=== PATIENT | female | born 1950 | race Caucasian/White ===

== ENCOUNTER → 2019-11-11 11:14 | Outpatient (CLI) | payer MEDICARE, SELFPAY ==
--- NOTE | ~2019-11-11 | DEXA_ITS ---
Bone Density Report Name: Idalmis Moeller Age: 69 Sex: Female Ethnicity: White Date of : 1950 Indication: osteopenia; height loss; history of glucocorticoids; postmenopausal Referring Provider: KRISTAL, HERRERA Cheng Study: Bone densitometry was performed. Exam Date: November 11, 2019 Accession number: [id number] Bone Density: Region BMD T-score Z-score Classification AP Spine (L1-L4) 0.902 -1.3 0.6 Osteopenia Femoral Neck (Left) 0.656 -1.7 -0.1 Osteopenia Total Hip (Left) 0.746 -1.6 -0.2 Osteopenia Femoral Neck (Right) 0.724 -1.1 0.5 Osteopenia Total Hip (Right) 0.732 -1.7 -0.4 Osteopenia Total Hip Mean 0.739 -1.7 -0.3 Osteopenia World Health Organization criteria for BMD impression classify patients as: Normal (T-score at or above -1.0), Osteopenia (T-score between -1.0 and -2.5), or Osteoporosis (T-score at or below -2.5). 10-year Fracture Risk(1): Major Osteoporotic Fracture 16% Hip Fracture 2.6% Reported Risk Factors: [place] (), Neck BMD=0.656, BMI=25.4, glucocorticoids (1) FRAX(R) Version 3.08. Fracture probability calculated for an untreated patient. Fracture probability may be lower if the patient has received treatment. Previous Exams: Region Exam Age BMD T-score BMD Change BMD Change Date g/cm2 vs Baseline vs Previous AP Spine(L1-L4) 11/11/2019 69 0.902 -1.3 -0.059* -0.129* 07/23/2009 59 1.031 -0.1 0.071* 0.071* 11/01/2006 56 0.960 -0.8 Total Hip(Left) 11/11/2019 69 0.746 -1.6 -0.042* -0.096* 07/23/2009 59 0.842 -0.8 0.054* 0.054* 11/01/2006 56 0.788 -1.3 Total Hip(Right) 11/11/2019 69 0.732 -1.7 -0.018 -0.054* 07/23/2009 59 0.786 -1.3 0.036* 0.036* 11/01/2006 56 0.750 -1.6 *Denotes significance at 95% confidence level, LSC for AP Spine = 0.022 g/cm2, LSC for Total Hip = 0.027 g/cm2 Clinical Information Provided by Patient: Has taken Glucocorticoids Has used the following medications: HRT (i.e. estrogen/hormone therapy), Vitamin D Patient maximum height was 67.5 Menopause Age: 52 No regular weight bearing exercise Drinks caffeinated beverages Onset of menses at age 15 Number of children 4 Impression: The patient has low bone mass, based on the Right Total Hip T-score. The patient has an estimated ten-year risk of hip fracture of 2.6% and an estimated ten-year risk of ma
== END ==
PROVIDERS: Visit Provider Family Medicine
DX: Z78.0 Asymptomatic menopausal state (principal); M85.88 Other specified disorders of bone density and structure, other site; M85.852 Other specified disorders of bone density and structure, left thigh; M85.851 Other specified disorders of bone density and structure, right thigh
CPT/HCPCS: 77080

== ENCOUNTER → 2020-12-03 02:01 | Outpatient (CLI) | payer MEDICARE, SELFPAY ==
[2020-12-04 19:47] LABS: SARS-CoV-2 RNA PCR Negative
== END ==
PROVIDERS: Internal Medicine Gastroenterology; PCP Family Medicine; Visit Provider Internal Medicine Gastroenterology
DX: Z01.812 Encounter for preprocedural laboratory examination (principal); Z20.822 Contact with and (suspected) exposure to COVID-19
CPT/HCPCS: C9803; U0003; U0005

== ENCOUNTER 2020-12-06 00:56 | Day surgery (SDC) | payer MEDICARE, SELFPAY ==
[2020-11-01 08:40] VITALS: BMI 23.8
[2020-12-06 07:51] VITALS: BP 131/77; PULSE 103; RESP 16; TEMP 36.6; O2SAT 98; BMI 24.3
[2020-12-06] MEDS: LACTATED RINGERS 1,000 ML 150 ML IV CONT (08:03)
--- NOTE | 2020-12-06 08:39 | PM.HPGS ---
History of Present Illness History of Present Illness Consent: Risks, benefits, and alternatives have been discussed and questions answered. Patient agrees to proceed with procedure. Chief complaint: Hx of Polyps Narrative: Idalmis Moeller is a 70 year old female undergoing screening colonoscopy. She has history of having a polyp removed about 12 years ago [facility] Family History Family History Mother Family history of malignant neoplasm of urinary bladder Father Cerebrovascular accident Malignant neoplasm of prostate Other Family history of dementia Hypertension Social History Social History Smoking status: Never smoker Alcohol intake: unknown Gender identity (if verbalized by the patient): Female Meds Home Medications and Allergies Home Medications Medication Instructions Recorded Confirmed Type aspirin 81 mg PO DAILY 11/01/20 12/06/20 History calcium carbonate-vitamin D3 1 tablet PO DAILY 11/01/20 12/06/20 History [Calcium + D] estradiol [Yuvafem] 10 mcg VAGINAL DAILY 11/01/20 12/06/20 History magnesium 250 mg PO DAILY 11/01/20 12/06/20 History bcmnavvgvcjb-lgm-jpze-FA-vit K 400 tablet PO DAILY 11/01/20 12/06/20 History [Adults Multivitamin] trazodone 25 mg PO HS 11/01/20 12/06/20 History pantoprazole 40 mg PO DAILY 11/24/20 12/06/20 History Allergies Allergy/AdvReac Type Severity Reaction Status Date / Time Penicillins Allergy Unknown Unknown Verified 12/06/20 07:48 Vital Signs Vital Signs - 24 hr 12/06/20 07:51 Temperature 36.6 C Pulse Rate 103 H Respiratory Rate 16 Blood Pressure 131/77 Pulse Oximetry 98 Exam Resp: Auscultation: clear to auscultation bilaterally Cardio: Rate: regular rate Rhythm: regular rhythm GI: GI Palp: Yes Soft to palpation and No Tenderness to palpation present (GI) Assessment and Plan Assessment and plan (1) Colon cancer screening: Code(s): Z12.11 - Encounter for screening for malignant neoplasm of colon Status: Acute Assessment and Plan: Colonoscopy with possible biopsy or polypectomy or cautery or injection of substances.
--- NOTE | 2020-12-06 08:48 | WPDANESEPPF ---
Anes - Initial Pre Proc Eval Procedure: Operation Date: 12/06/20 09:00 Proposed Procedures p Screening Colonoscopy - Singh Luna MD Date/Time: 12/06/20 08:48 Surgeon: Singh Luna MD Pre Op Diagnosis: Hx of Polyps Patient Data Age: 70 Gender: F Height: 5 ft 8 in Weight: 72.7 kg Last Vital Signs Temp 97.9 F 12/06/20 07:51 Pulse 103 H 12/06/20 07:51 Resp 16 12/06/20 07:51 BP 131/77 12/06/20 07:51 Pulse Ox 98 12/06/20 07:51 Allergies Allergy/AdvReac Type Severity Reaction Status Date / Time Penicillins Allergy Unknown Unknown Verified 12/06/20 07:48 Home Medications Medication Instructions Recorded Confirmed Type aspirin 81 mg PO DAILY 11/01/20 12/06/20 History calcium carbonate-vitamin D3 1 tablet PO DAILY 11/01/20 12/06/20 History [Calcium + D] estradiol [Yuvafem] 10 mcg VAGINAL DAILY 11/01/20 12/06/20 History magnesium 250 mg PO DAILY 11/01/20 12/06/20 History voqrkozymxpb-ebf-qeah-FA-vit K 400 tablet PO DAILY 11/01/20 12/06/20 History [Adults Multivitamin] trazodone 25 mg PO HS 11/01/20 12/06/20 History pantoprazole 40 mg PO DAILY 11/24/20 12/06/20 History Patient hx anesthesia problems: none Family hx anesthesia problems: none PMFSH Past Medical History Medical History (Updated 12/06/20 @ 08:48 by Kike Jones MD) COPD (chronic obstructive pulmonary disease) Migraine Mitral valve prolapse Family History Family History Mother Family history of malignant neoplasm of urinary bladder Father Cerebrovascular accident Malignant neoplasm of prostate Other Family history of dementia Hypertension Social History Social History Smoking status: Never smoker Alcohol intake: unknown Gender identity (if verbalized by the patient): Female Anes - Eval Final PreProcedure Day of Procedure 12/06/20 08:48 Patient weight: normal Heart: regular rate and rhythm Lungs: clear to auscultation Airway: Mallampati scale class II Neurological: alert and oriented Last oral intake: >/= 8 hours ASA classification: II Emergent: no Anesthetic plan: proceed Anesthesia type and monitoring: general GIVS and standard monitoring Informed Consent: The patient's anesthetic plan and its attendant risks and benefits were discussed with the patient/family/POA. Questions were solicited and answers provided to the satisfaction of the patient/family/POA.
[2020-12-06 09:15] VITALS: BP 127/72; PULSE 88; RESP 22; O2SAT 98
[2020-12-06 09:25] VITALS: BP 118/67; PULSE 76; RESP 18; O2SAT 98
[2020-12-06 09:35] VITALS: BP 150/86; PULSE 74; RESP 20; O2SAT 98
== END 2020-12-06 09:37 | disposition home or self-care (01) ==
PROVIDERS: PCP Family Medicine; Visit Provider Internal Medicine Gastroenterology
PROC: 0DJD8ZZ Inspection of Lower Intestinal Tract, Via Natural or Artificial Opening Endoscopic (ICD-10-PCS; CPT 45378; principal; 2020-12-06 09:00)
DX: Z12.11 Encounter for screening for malignant neoplasm of colon (principal); Z86.010 Personal history of colon polyps; Z79.82 Long term (current) use of aspirin; J44.9 Chronic obstructive pulmonary disease, unspecified; I34.1 Nonrheumatic mitral (valve) prolapse
CPT/HCPCS: G0105; J2704; J7120

== ENCOUNTER 2021-02-02 08:00 | Outpatient (RCR) | payer MEDICARE, SELFPAY ==
--- NOTE | 2021-01-10 16:05 | PTOPEVAL ---
PHYSICAL THERAPY EVALUATION AND PLAN OF CARE 4-12-2-1 Thank you for referring Idalmis Moeller to [facility] for the diagnosis of vestibular rehab.? The treatment plan includes modalities and treatment for neck pain/headaches. She is scheduled to be seen for therapy? 2 x/week for 4 weeks. Please review, sign, date and return this plan of care PRITI. I agree with and certify that the following plan of care is medically necessary. Referring Physician Date Attending Provider: Elif Morton NP Document 01/10/21 14:35 DEYSI (Rec: 01/10/21 16:05 DEYSI [id number]) Assessment Status Evaluation Outpatient Past Medical History Past Medical History Source of Past Medical History Recalled from Previous Visit, Confirmed with Patient/Family Neurological History Hx Migraine Yes: average 2x/wk, take meds, then ease; head sensitive to touch Cardiovascular History Hx Mitral Valve Prolapse Yes: Heart Palpatations, no meds Respiratory History Hx Chronic Obstructive Pulmonary Disease Yes: inhaler (COPD) Gastrointestinal History Hx Ulcer Yes: 1970's Hx Other Gastrointestinal Disorders Yes: Cramping, epigastric pain after eating-meds Genitourinary History Hx Genitourinary Disorders No Significant History Musculoskeletal History Hx Arthritis Yes: Neck, Hands, knees Hematological History Hx Hematological Disorders No Significant History Endocrine History Hx Thyroidectomy Yes: Goiter Removed+1/3 thyroid HEENT History Hx Cataracts Yes: R eye cataract removed; Hx Tonsillectomy Yes Hx Other HEENT Disorders Yes: 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; radiation to area 2020 Integumentary History Hx Excision Skin Lesion Yes: Removed Reproductive History Hx Section Yes: x4 Psychosocial History Hx Psychiatric Disorders No Significant History Pain History History of Any Previous or Ongoing No Significant History Instance of Pain Anesthesia History Hx Anesthesia Reactions No Significant History Other History Hx Cancer Yes: Skin Hx Other Surgeries Yes: R & L trigger finger surgery Evaluation Information Problem Diagnosis vestibular rehab for schwannoma cranial Nerve Onset November Subjective Information medical history: 2009- Query Text:As Reported By Patient/ Schwannoma cranial nerve Family removed- partially removed;
--- NOTE | 2021-02-02 09:10 | PTOPEVAL ---
PHYSICAL THERAPY DISCHARGE 02-02-21 Refer to the clinical summary below for her status today, compared to the initial evaluation. Discharge PT. Thank you for referring Idalmis Moeller to [facility].? Please review, sign, date and return this Discharge report PRITI. I agree with and certify that the following plan of care is medically necessary. Referring Physician Date Admitting Provider: Elif Morton, [employer] EMBOSSING PRESS OPERATOR Document 02/02/21 08:00 DEYSI (Rec: 02/02/21 09:10 DEYSI [id number]) Assessment Status Discharge Problem Subjective Information Idalmis reports: headache tend to Query Text:As Reported By Patient/ start during night and early Family AM- tender on R side of head and when lie on side too long; other headaches trigger with weather or sit in same position too long; when get up , move they tend to ease and take excedrin; doing better clearing the R side doorframe- -hit one time only this week; doing better--was able to jump on the trampoline with the grand kids without any problem; since started therapy- doing little better, more conscious of what I am doing and counteracting things better--more aware of what I am doing and my posture; Pain Assessment Timing of Pain Assessment Timing of Pain Assessment Assessment Pain Scale Pain Scale Used Numeric (1 - 10) Self Report Pain Assessment Bilateral Spine, Cervical Reported Pain Level 0 Pain Description Tightness Pain Frequency Chronic Other Pain Description headache with nausea yesterday - unable to eat;headaches last week 2x/week Lowest Pain Intensity 0 Greatest Pain Intensity 2 Pain Score Pain Score 0: Self Report Additional Pain Score Comments educated on and applied kinesiotape strip over upper traps and cervical paraspinals ; pt to have her family apply for her; Interventions Used Interventions Used By Clinicians Education,Exercise,Taping Cervical and Lumbar ROM Cervical ROM Cervical ROM Comments sitting cervical AROM: rotation R 50'/ L 45'- report tight on R side neck, no
== END 2021-02-02 14:45 | disposition home or self-care (01) ==
LOC: ANHPT 08:00
PROVIDERS: PCP Family Medicine
DX: D33.3 Benign neoplasm of cranial nerves (principal)
CPT/HCPCS: 97110; 97140; 97162

== ENCOUNTER 2022-01-13 13:17 | Outpatient (CLI) | payer MEDICARE, SELFPAY ==
--- NOTE | ~2022-01-13 | US_ITS ---
EXAMINATION: US FNA w image guidance DATE: 01/13/2022 14:38 INDICATION: Nontoxic single thyroid nodule. TECHNIQUE: The procedure and its benefits and risks were discussed with the patient. Risks specifically discusse d included bleeding. The patient verbalized understanding of the risks and agreed to proceed. The nec k was prepped and draped in the usual sterile manner. 1% lidocaine was used for local anesthesia. 6 passes were made with a 25G needle into the lesion under ultrasound guidance. There were no immedia te complications. FINDINGS: Grayscale ultrasound images demonstrate needles advanced into a 1.6 cm nodule in right thyroid lobe f or biopsy. IMPRESSION: 1. Ultrasound-guided fine needle aspiration of a right thyroid nodule. Reviewed, dictated and finalized at location A.
== END 2022-01-13 13:18 | disposition home or self-care (01) ==
PROVIDERS: PCP Family Medicine; Visit Provider Family Medicine
DX: E04.1 Nontoxic single thyroid nodule (principal)
CPT/HCPCS: 10005; 88173; 88305

== ENCOUNTER 2022-09-27 13:18 | Outpatient (CLI) | payer MEDICARE, SELFPAY ==
--- NOTE | ~2022-09-27 | US_ITS ---
EXAMINATION: US thyroid DATE: 09/27/2022 14:01 INDICATION: Thyroid nodule TECHNIQUE: Multiple ultrasound images of the thyroid were obtained. COMPARISON: 12/23/2021 and 01/13/2022 FINDINGS: The right thyroid lobe measures 4.2 x 1.5 x 1.4 cm. The left thyroid lobe is small measuring 1.7 x 0 .9 x 0.7, likely related to a reported prior partial left thyroidectomy. There are couple nodules in the left thyroid lobe. The more cephalad smaller nodule 1.1 cm nodule is wider than tall, predominant ly solid and very hypoechoic with smooth peripheral margin. There are a couple internal echogenic foc i with clear posterior comet tailing as well as a few tiny punctate foci without, comet tailing (TI-R ADS 5, highly suspicious , FNA if >=1.0 cm, annual followup is >0.5 cm). The larger and more caudal n odule at the inferior right thyroid lobe measures 1.4 cm. It is also wider than tall, mixed solid and cystic, hypoechoic with lobular margins and multiple tiny internal echogenic foci, also TI RADS 5. T he inferior nodule was biopsied on 01/13/2022 with pathology read as consistent with benign follicula r nodule. IMPRESSION: 1. A couple TI RADS 5 nodules in the left thyroid lobe, both which meet criteria for ultrasound-guide d biopsy. The larger and more caudal was biopsied on 01/13/2022 with pathology read as consistent wit h benign follicular nodule. Would consider ultrasound-guided biopsy of the second TI-RADS 5 right thy roid nodule. Reviewed, dictated and finalized at location A. LE AND GRANITE POLISHER IMPRESSION: 1. A couple TI RADS 5 nodules in the left thyroid lobe, both which meet criteri a for ultrasound-guided biopsy. The larger and more caudal was biopsied on 01/13 with pathology read as consistent with benign follicular nodule. Would c onsider ultrasound-guided biopsy of the second TI-RADS 5 right thyroid nodule.
== END 2022-09-27 13:19 | disposition home or self-care (01) ==
PROVIDERS: PCP Family Medicine; Visit Provider Family Medicine
DX: E04.2 Nontoxic multinodular goiter (principal)
CPT/HCPCS: 76536

== ENCOUNTER 2022-10-19 09:33 | Outpatient (CLI) | payer MEDICARE, SELFPAY ==
--- NOTE | 2022-10-19 11:00 | EST_ITS ---
Patient Info Name: Idalmis Moeller Age: 72 years : 1950 Gender: Female Ht: 67 in Wt: 160 lbs BSA: 1.86 m2 HR: 63 bpm BP: 112 / 76 mmHg Technical Quality: Good Exam Date: 10/19/2022 10:20 AM Exam Location: [facility] Pulmonary Exam Room: stress lab Patient Status: Outpatient Admit Date: 10/19/2022 Staff Ordering Physician: SajiCharito MD Nurse Practitioner Per Diem: Danae Paul RDCS Attending Provider: ManishCharito MD Exercise Technologist: Marguerite Hernandez CT Nurse: amirah cuba Exam Type: CA stress echo Study Info Indications R06.00 - Dyspnea, unspecified Treadmill exercise stress echocardiogram is performed. Summary 1. Baseline motion artifact during exercise, which limits interpretation. 2. No evidence of ischemic EKG changes with exercise. 3. Good functional capacity, achieving 7.1 METs of workload. 4. Hypertensive blood pressure response to exercise. 5. Normal left venticular systolic function with no regional wall motion abnormalities noted at rest. 6. Left ventricular systolic function is normal with an estimated ejection fraction of 60-65% at rest. 7. Overall global left ventricular systolic function Improved post stress. 8. No regional wall motion abnormalities noted post stress. 9. Normal augmentation of all wall segments without evidence of ischemia with stress. Stress Echo Findings Left Ventricle Normal left venticular systolic function with no regional wall motion abnormalities noted at rest. Left ventricular systolic function is normal with an estimated ejection fraction of 60-65% at rest. Overall global left ventricular systolic function Improved post stress. No regional wall motion abnormalities noted post stress. Normal augmentation of all wall segments without evidence of ischemia with stress. Ventricles Name Value Normal LV Fractional Shortening/Ejection Fraction 2D/MM Visually Estimated EF 60 % 54-74 Protocol: Robson Stress ECG Details Stage: REST Duration (min): 1 min : 6 sec Speed (mph): 0.0 Grade (%): 0 HR (bpm): 65 SBP (mmHg): 112 DBP (mmHg): 76 METS: --- Stage: REST Duration (min): 22 min : 42 sec Speed (mph): 0.0 Grade (%): 0 HR (bpm): 88 SBP (mmHg): 112 DBP (mmHg): 76 METS: --- Stage: STAGE 1 Duration (min): 1 min : 0 sec Speed (mph): 1.7 Grade (%): 10 HR (bpm): 100 SBP (mmHg): 112 DBP (mmHg): 76 METS: --- Stage: STAGE 1 Duration (min): 2 min : 0 sec Speed (mph): 1.7 Grade (%): 10 HR (bpm): 119 SBP (mmHg): 112 DBP (mmHg): 76 METS: --- Stage: STAGE 1 Duration (min): 3 min : 0 sec Speed (mph): 1.7 Grade (%): 10 HR (bpm): --- SBP (mmHg): 112 DBP (mmHg): 76 METS: --- Stage: STAGE 2 Duration (min): 1 min : 0 sec Speed (mph): 2.5 Grade (%): 12 HR (bpm): --- SBP (mmHg): 112 DBP (mmHg): 76 METS: ---
== END 2022-10-19 09:34 | disposition home or self-care (01) ==
LOC: ANHCARD 09:35
PROVIDERS: PCP Family Medicine; Visit Provider Family Medicine
DX: R06.09 Other forms of dyspnea (principal); R22.1 Localized swelling, mass and lump, neck
CPT/HCPCS: 93351

== ENCOUNTER 2022-10-26 11:59 | Outpatient (CLI) | payer MEDICARE, SELFPAY ==
--- NOTE | ~2022-10-26 | US_ITS ---
EXAMINATION: US FNA w image guidance DATE: 10/26/2022 13:21 INDICATION: Right thyroid nodule. TECHNIQUE: The procedure and its benefits and risks were discussed with the patient. Risks specifically discusse d included bleeding. The patient verbalized understanding of the risks and agreed to proceed. The nec k was prepped and draped in the usual sterile manner. 1% lidocaine was used for local anesthesia. 7 passes were made with a 25G needle into the lesion under ultrasound guidance. There were no immedia te complications. FINDINGS: Grayscale ultrasound images demonstrate needles advanced into a 1.1 cm nodule in superior right thyro id lobe for biopsy. IMPRESSION: 1. Ultrasound-guided fine needle aspiration of a 1.1 cm nodule in superior right thyroid lobe. Reviewed, dictated and finalized at location A. LINE INSPECTOR IMPRESSION: 1. Ultrasound-guided fine needle aspiration of a 1.1 cm nodule in superior rig ht thyroid lobe.
== END 2022-10-26 12:00 | disposition home or self-care (01) ==
PROVIDERS: PCP Family Medicine; Visit Provider Family Medicine
DX: E04.1 Nontoxic single thyroid nodule (principal)
CPT/HCPCS: 10005; 88173; 88305

== ENCOUNTER → 2023-06-25 09:41 | Outpatient (CLI) | payer MEDICARE, SELFPAY ==
--- NOTE | ~2023-06-25 | MMUS_ITS ---
EXAMINATION: MM diagnostic benjamin LT w brad, US breast LT complete HISTORY: Left breast pain TECHNIQUE: ML, MLO and CC 3-D tomosynthesis images of both breasts were performed and synthetic 2-D i mages were generated. CAD analysis was submitted and interpreted. High resolution complete left breas t ultrasound examination including all 4 quadrants and subareolar area was performed. COMPARISON: 01/20/2008 bilateral screening mammogram BREAST PARENCHYMAL COMPOSITION: There are scattered areas of fibroglandular density. FINDINGS: MAMMOGRAPHIC FINDINGS: No suspicious mass or architectural distortion, malignant calcification, skin thickening or retractio n or significant new or developing density is detected. ULTRASOUND: No suspicious mass or shadowing or other significant sonographic finding is noted. IMPRESSION: 1. No mammographic or sonographic evidence of malignancy 2. Routine annual mammographic screening is recommended BI-RADS Category 1: Negative Reviewed, dictated and finalized at location A. IMPRESSION: 1. No mammographic or sonographic evidence of malignancy 2. Routine annual mammographic screening is recommended BI-RADS Category 1: Negative
== END ==
PROVIDERS: PCP Nurse Practitioner; Visit Provider Obstetrics & Gynecology
DX: N64.4 Mastodynia (principal)
CPT/HCPCS: 76641; 77061; 77065; G0279

== ENCOUNTER 2023-12-24 12:39 | Outpatient (CLI) | payer MEDICARE, SELFPAY ==
--- NOTE | ~2023-12-24 | US_ITS ---
EXAMINATION: US thyroid DATE: 12/24/2023 13:00 INDICATION: Thyroid nodule. TECHNIQUE: Multiple ultrasound images of the thyroid were obtained. COMPARISON: Ultrasound 09/19/2022, 12/23/2021, 01/13/22 FINDINGS: The right thyroid lobe measures 4.7 x 1.9 x 1.5 cm. The left thyroid lobe measures 2.6 x 0.9 x 1.0 c m. The thyroid demonstrates heterogeneous echogenicity. Vascularity is normal. In the right thyroid lobe, there is a 9 mm solid, hypoechoic, wider than tall nodule with ill-defined margin without echog enic foci (TI-RADS TR4). In the right thyroid lobe, there is a 14 mm solid, hypoechoic wider than immanuel l nodule with ill-defined margin without echogenic foci (TR4), stable from 01/13/22 when biopsy was be nign. IMPRESSION: 1. Stable thyroid nodules, likely not clinically significant. No follow-up is needed. Reviewed, dictated and finalized at location E. IMPRESSION: 1. Stable thyroid nodules, likely not clinically significant. No follow-up is n eeded.
== END 2023-12-24 12:40 ==
PROVIDERS: Visit Provider Otolaryngology
DX: E04.1 Nontoxic single thyroid nodule (principal); E04.2 Nontoxic multinodular goiter
CPT/HCPCS: 76536

== ENCOUNTER 2024-08-08 12:25 | Outpatient (CLI) | payer MEDICARE, SELFPAY ==
--- NOTE | ~2024-08-08 | MM_ITS ---
EXAMINATION: MM screening benjamin BI w brad HISTORY: Screening TECHNIQUE: Craniocaudal and mediolateral oblique 3-D tomosynthesis images were obtained and synthetic 2-D images were generated. CAD analysis was submitted and interpreted. COMPARISON: Comparison to multiple prior studies sequentially, with oldest reviewed study dated 08/31. BREAST PARENCHYMAL COMPOSITION: Not dense: There are scattered areas of fibroglandular density. FINDINGS: There is no evidence of suspicious mass, calcification, or architectural distortion to sugg est malignancy in either breast. There has been no suspicious interval change. IMPRESSION: 1. No mammographic evidence of malignancy. 2. Recommend routine screening mammography in one year. BI-RADS Category 1: Negative Reviewed, dictated and finalized at location B. LCHAIR VAN DRIVER
== END 2024-08-08 12:26 | disposition home or self-care (01) ==
PROVIDERS: PCP Nurse Practitioner; Visit Provider Nurse Practitioner
DX: Z12.31 Encounter for screening mammogram for malignant neoplasm of breast (principal)
CPT/HCPCS: 77063; 77067

== ENCOUNTER 2025-01-19 09:16 | Outpatient (CLI) | payer MEDICARE, SELFPAY ==
--- NOTE | ~2025-01-19 | DEXA_ITS ---
Bone Density Report Name: ANNIE NOYOLA Age: 74 Sex: Female Ethnicity: White Date of : 1950 Indication: postmenopausal; screening for osteoporosis; Referring Provider: MARGIE, ELIGIO Ricci Study: Bone densitometry was performed. Exam Date: January 19, 2025 Accession number: [id number] Bone Density: Region BMD T-score Z-score Classification AP Spine(L1-L4) 0.833 -1.9 0.3 Osteopenia Femoral Neck (Left) 0.607 -2.2 -0.2 Osteopenia Total Hip (Left) 0.758 -1.5 0.1 Osteopenia Femoral Neck (Right) 0.631 -2.0 0.0 Osteopenia Total Hip (Right) 0.773 -1.4 0.3 Osteopenia Total Hip Mean 0.765 -1.5 0.2 Osteopenia World Health Organization criteria for BMD impression classify patients as: Normal (T-score at or above -1.0), Osteopenia (T-score between -1.0 and -2.5), or Osteoporosis (T-score at or below -2.5). 10-year Fracture Risk(1): Major Osteoporotic Fracture 13% Hip Fracture 3.1% Reported Risk Factors: [place] (), Neck BMD=0.607, BMI=22.9 (1) FRAX(R) Version 3.08. Fracture probability calculated for an untreated patient. Fracture probability may be lower if the patient has received treatment. Clinical Information Provided by Patient: Has used the following medications: Fosamax (i.e. alendronate), Vitamin D, Calcium Patient maximum height was 67 Menopause Age: 52 No regular weight bearing exercise Drinks caffeinated beverages Onset of menses at age 15 Number of children 3 Impression: The patient has low bone mass, based on the Left Femoral Neck T-score. The patient has an estimated ten-year risk of hip fracture of 3.1% and an estimated ten-year risk of major fracture of 13%, based on the WHO FRAX algorithm. Discussion: BONE DENSITY IS LOW AT ONE OR MORE SKELETAL SITES. THE PATIENT'S BMD AND CLINICAL RISK FACTORS CONTRIBUTE TO THIS PATIENT'S INCREASED RISK OF FRACTURE. This patient's lowest T-score is low at one or more skeletal sites. It meets the World Health Organization's (WHO) criteria for ?low bone mass? (T-score between -1.0 and -2.5). The patient's 10-year risk of hip fracture as calculated by FRAX exceeds the threshold where pharmacological therapy is recommended by the National Osteoporosis Foundation (NOF). However, all treatment decisions require clinical judgment and consideration of individual patient factors, including patient preferences, comorbidities, previous drug use, risk factors not captured in the FRAX model (e.g., frailty, falls, vitamin D deficiency, increased bone turnover, interval significant decline in bone density) and possible under or overestimation of fracture risk by FRAX. The patient should follow a healthful lifestyle (good nutrition with adequate calcium and vitamin D, and appropriate weight-bearing exercise). Follow-Up: Consider a repeat BMD and Vertebral Fracture Assessment (VFA) exam in 2 years or sooner if medically necessary, to reassess this patient's status. Reported by: OLMAN on 01/19/2025 9:51:00 AM. Reviewed, dictated and finalized at location [facility]ach[facility] BENSON
--- OUTSIDE RECORDS SUMMARY | 2025-01-19 10:09 | XMS_ITS | Clinical Summary ---
Author Organization [facility] al Address [address] [place] [address] Care Team Providers Care Bond Clerk Name Role Phone Nicolás Tiwari MD Unavailable [phone] Kirstin Sprague MD Unavailable Marcy Martinez PhD Unavailable [phone] Kiara Owens NP Primary Care Provider [phone] Allergies Active Allergy Reactions Criticality Noted Date Comments Penicillins Rash Medium Medications fluticasone (FLONASE) 50 mcg/actuation nasal spray as needed 7 Active levothyroxine (SYNTHROID) 25 mcg tablet Take 1 tablet (25 mcg total) by mouth ecommerce manager before breakfast Active famotidine (PEPCID) 20 mg tablet Take 1 tablet (20 mg total) by mouth 2 (two) times a day as needed 3 Active escitalopram (LEXAPRO) 10 mg tablet Take 1 tablet (10 mg total) by mouth 2 times daily 3 Active rizatriptan (MAXALT) 10 mg tabletIndication s:Migraine Take 1 tablet (10 mg total) by mouth once as needed for migraine for up to 108 doses May repeat in 2 hours if unresolved. Do not exceed 30 mg in 24 hours. 9 tablet 11 4 Active topiramate (TOPAMAX) 25 mg tabletIndication s:Chronic migraine without aura without status migrainosus, not intractable Take 1 tablet (25 mg total) by mouth 2 (two) times a day 60 tablet 11 4 Active hydrOXYzine (ATARAX) 25 mg tablet Take 1 tablet (25 mg total) by mouth 3 (three) times a day as needed 4 Active rimegepant (Nurtec ODT) tablet,disintegr ating Take by oral route. 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 Overview (12/28/2023): Incomplete resection due to facial nerve involvement Going to due XRT Incomplete resection due to facial nerve involvement Going to due XRT Chronic migraine without aur a without status migrainosus, not intractable 05/01/2017 Fibromyalgia 05/01/2017 Immunizations Immunization Administration Dates Next Due Influenza LAIV (Nasal) 07/01/2013 Influenza Nasal, Unspecified 07/01/2013 Influenza, Quad, Adjuvantate d, Intramuscular 07/10/2020 Influenza, Trivalent, Preser vative Free, Intramuscular 07/03/2016,07/18/2015 Influenza, Unspecified 07/01/2024,2022,07/12/2022,07/15,07/10/2020,07/01/2019,07/03/2016 ,07/18/2015,01/13/2015 Pneumococcal Conjugate PCV 13 08/15/2017 Pneumococcal Polysaccharide PPV23 08/15/2018 Tdap 04/01/2013,01/09/2012 ZOSTER Recombinant 10/20/2019 Surgical History Surgery Date Site/Laterality Comments HAND SURGERY Left CATARACT EXTRACTION Right SECTION 11/1979, [id number] D&C FIRST TRIMESTER / TX INCOMPLETE / MISSED / SEPTIC / INDUCED 11/01/1978 - 11/28/1978 TONSILLECTOMY 11/01/1974 - 11/28/1974 OTHER SURGICAL HISTORY 11/01/1970 - 11/28/1970 thyroid goiter CARDIAC CATHETERIZATION 11/01/2011 - 11/29/2011 TRIGGER FINGER RELEASE 10/01/2010 - 09/30/2011 Right right thumb CRANIECTOMY FOR EXCISION OF ACOUSTIC NEUROMA 11/01/2009 - 11/28/2009 Right Medical History Medical History Date Comments Hx Other Medical 2013 L thigh skin [place] perficial cancer removal Schwannoma 11/2009 schwannoma tumor right side with resection Migraine Headache, migrai ne HL (hearing loss) Tinnitus Mitral valve prolapse Chronic headaches Cancer (HCC) skin Headache, tension-type COPD (chronic obstructive pu lmonary disease) (HCC) Family History Medical History Relation Name Comments Prostate cancer Brother Hypertension Father Memory loss Father Prostate cancer Father Cancer, pros sanchez; Stroke Father Leukemia Maternal Grandfather Arthritis Maternal Grandmother Arthritis Mother Bladder Cancer Mother Cancer, bladd er; Osteoporosis Mother Hypertension Other 1 Family history of Hypertension; Thrombophilia Other 1 Other Other 2 No family histo ry of Cancer, breast; Other Other 3 No family histo ry of Cancer, colon; Other Other 4 No family histo ry of Ovarian cancer; Diabetes Paternal Grandmother Osteoporosis Sister Deep vein thrombosis Neg Hx Ovarian cancer Neg Hx Relation Name Status Comments Brother Father Maternal Grandfather Maternal Grandmother Mother Other 1 Other 2 Other 3 Other 4 Paternal Grandmother Sister Social History Tobacco Use Types Packs/Day Years Used Date Smoking Tobacco: Never Smokeless Tobacco: Never Tobacco Cessation:Counseling Given: Not Answered Alcohol Use Standard Drinks/Week Comments No 0 (1 standard drink = 0.6 oz pur e alcohol) AUDIT-C Answer Date Recorded Q1: How often do you have a drink containing alc ohol? Never 01/04/2022 Average Number of Drinks Not on file 022 Frequency of Binge Drinking Not on file 03/2022 Comments No Sex and Gender Information Value Date Recorded Sex Assigned at Not on file Legal Sex Female 12:46 AM GOVERNMENT AFFAIRS MANAGER Gender Identity Female 07/29/2021 9:42 AM CDT Sexual Orientation Straight 05/28/2020 6: 54 AM CDT Occupation Industry Job Start Date Job End Date retired Not on file Not on file Not on file Obstetrics History Para Term AB IAB SAB Ectopic Multiple Livin g Live Births 5 4 3 1 1 1 3 3 Date Outcome GA Total Labor Labor/2nd/3rd Weight Sex Type Anes PTL Trinidad A1 A5 Name Clin Term Term Term IAB Last Filed Vital Signs Vital Sign Reading Time Taken Comments Blood Pressure 124/78 08/26/2024 8:03 AM GOVERNMENT AFFAIRS MANAGER Pulse 86 08/26/2024 8:03 AM GOVERNMENT AFFAIRS MANAGER Temperature - - Respiratory Rate 18 08/15/2023 8:55 AM GOVERNMENT AFFAIRS MANAGER Oxygen Saturation 100% 08/26/2024 8:03 AM GOVERNMENT AFFAIRS MANAGER Inhaled Oxygen Concentration - - Weight 66.7 kg (147 lb) 08/26/2024 8:03 AM GOVERNMENT AFFAIRS MANAGER Height 170.2 cm (5' 7 ) 08/26/2024 8:03 AM GOVERNMENT AFFAIRS MANAGER Body Mass Index 23.02 08/26/2024 8:03 AM GOVERNMENT AFFAIRS MANAGER Plan of Treatment Health Maintenance Due Date Last Done Comments Colon Cancer Screening-Colonoscopy 1950 Depression Screening 1950 Fall Risk Assessment 1950 Hepatitis C Screening 1950 Osteoporosis Screening-Bone Density Scan 1950 Hepatitis B Screening 1970 Zoster Vaccine (2 of 2) 12/15/2019 10/20/2019 Well Visit 65+ 2020 2019, 05/01/2017 DTaP/Tdap/Td Vaccine (3 - Td or Tdap) 04/01/2023 04/01/2013, 01/09/2012 Breast Cancer Screening-Mammogram 10/16/2023 10/16/2022, 09/13/2021, 06/09/2020, Additional history exists Covid-19 Vaccine (2023-2 5 season) 2024 02/02/2022, 08/10/2021, 12/21/2020, Additional history exists Pneumococcal vaccine 65+ Completed 08/15/2018, 08/01 Influenza Vaccine Completed 07/01/2024, , 07/12/2022, Additional history exists Procedures Procedure Name Priority Date/Time Associated Diagnosis Comments SCREENING MAMMOGRAM BILATERAL W JOSELO Schedule Routine, Read Routine (OP Routine) 10/16/2022 9:27 AM GOVERNMENT AFFAIRS MANAGER Screening mammogram, encounter for from Last 3 Months or Most Recently Relevant to Health Maintenance Results * Screening Mammogram Bilateral W Joselo (10/16/2022 9:27 AM GOVERNMENT AFFAIRS MANAGER) Anatomical Region Laterality Modality Breast Bilateral Mammography Narrative 10/17/2022 1:16 PM GOVERNMENT AFFAIRS MANAGER Mammogram Technique: Bilateral Digital Breast Tomosynthesis, Bilateral C-view 2D Screening mammogram. Views obtained: bilateral craniocaudal and bilateral mediolateral oblique. Computer Aided Detection was performed. Mammogram Findings: The present examination has been compared to prior imaging studies performed at [facility] on 06/09/2020, and at [facility] on 2019 and 09/13/2021. There are scattered areas of fibroglandular density. There is no suspicious abnormality in either breast. Impression: There is no mammographic evidence of malignancy. Annual screening mammography is recommended. OVERALL FINAL ASSESSMENT: BI-RADS CATEGORY 1: Negative. Procedure Note Chely Yarbrough MD - 10/17/2022 Mammogram Technique: Bilateral Digital Breast Tomosynthesis, Bilateral C-view 2D Screening mammogram. Views obtained: bilateral craniocaudal and bilateral mediolateral oblique. Computer Aided Detection was performed. Mammogram Findings: The present examination has been compared to prior imaging studies performed at [facility] on 06/09/2020, and at [facility] on 2019 and 09/13/2021. There are scattered areas of fibroglandular density. There is no suspicious abnormality in either breast. Impression: There is no mammographic evidence of malignancy. Annual screening mammography is recommended. OVERALL FINAL ASSESSMENT: BI-RADS CATEGORY 1: Negative. us Self Screening Mammogram IMG MAMMO PROCEDURES Fi nal Result from Last 3 Months or Most Recently Relevant to Health Maintenance Insurance MEDICARE COMMERCIAL GENERIC MEDICARE HU[employer]NA MEDICARE SUPPLEMENT MEDICARE HU[employer] MEDICARE SUPPLEMENT Care Teams Bond Clerk Relationship Specialty Start Date End Date Kiara Owens ELIGIBILITY COUNSELOR [address] [address] PCP - General Nurse Practitioner 01/07/25 Nicolás Tiwari MD Surgeon Neurosurgery 07/06/20 Kirstin Sprague MD Radiation Oncologist Radiation Oncology 01/04/21 Marcy Martinez, PhD Nurse Practitioner Radiation Oncology 01/04/21
--- OUTSIDE RECORDS SUMMARY | 2025-01-19 10:09 | XMS_ITS ---
Author Organization [facility] al Address [address] [place] [address] Care Team Providers Care All Around Presser Name Role Phone Nicolás Tiwari MD Unavailable [phone] Kirstin Sprague MD Unavailable Marcy Martinez PhD Unavailable [phone] Kiara Owens NP Primary Care Provider [phone] Active Problems Problem Noted Date Diagnosed Date [...] status migrainosus, not intractable 05/01/2017 Fibromyalgia 05/01/2017 Current Treatment and Therapy Plans No current plan information found. Past Treatment and Therapy Plans No past plan information found. Radiation Treatments * Course C1 07/06/2020 - 07/06/2020 Treatment Period Energy Fraction Dose Fractions Total Dose Plans Planned A:Tum1_Rt_Ves 07/06/2020 - 07/06/2020 1,200 Reference Points Delivered A:Tum1_Rt_VestSc 07/06/2020 - 07/06/2020 1,200
--- OUTSIDE RECORDS SUMMARY | 2025-01-19 10:09 | XMS_ITS | Referral Summary ---
Author Organization [facility] al Address [address] [place] [address] Care Team Providers Care Make Up Worker Name Role Phone Nicolás Tiwari MD Unavailable [phone] Kirstin Sprague MD Unavailable Marcy Martinez PhD Unavailable [phone] Kiara Owens NP Primary Care Provider [phone] Allergies Active Allergy Reactions Criticality Noted Date Comments Penicillins Rash Medium Medications fluticasone (FLONASE) 50 mcg/actuation nasal spray as needed 7 Active levothyroxine (SYNTHROID) 25 mcg tablet Take 1 tablet (25 mcg total) by mouth claim inspector before breakfast Active famotidine (PEPCID) 20 mg [...] PPV23 08/15/2018 Tdap 04/01/2013,01/09/2012 ZOSTER Recombinant 10/20/2019 Social History Tobacco Use Types Packs/Day Years [...] on file Legal Sex Female 12:46 AM PROFILING MACHINE SET UP OPERATOR Gender Identity Female 07/29/2021 9:42 AM CDT Sexual Orientation Straight 05/28/2020 6: 54 AM CDT Occupation Industry Job Start Date Job End Date retired Not on file Not on file Not on file Last Filed Vital Signs Vital Sign Reading Time Taken Comments Blood Pressure 124/78 08/26/2024 8:03 AM PROFILING MACHINE SET UP OPERATOR Pulse 86 08/26/2024 8:03 AM PROFILING MACHINE SET UP OPERATOR Temperature - - Respiratory Rate 18 08/15/2023 8:55 AM PROFILING MACHINE SET UP OPERATOR Oxygen Saturation 100% 08/26/2024 8:03 AM PROFILING MACHINE SET UP OPERATOR Inhaled Oxygen Concentration - - Weight 66.7 kg (147 lb) 08/26/2024 8:03 AM PROFILING MACHINE SET UP OPERATOR Height 170.2 cm (5' 7 ) 08/26/2024 8:03 AM PROFILING MACHINE SET UP OPERATOR Body Mass Index 23.02 08/26/2024 8:03 AM PROFILING MACHINE SET UP OPERATOR Plan of Treatment Not on file Procedures Procedure Name Priority Date/Time Associated Diagnosis Comments SCREENING MAMMOGRAM BILATERAL W ANTOINETTE Schedule Routine, Read Routine (OP Routine) 10/16/2022 9:27 AM PROFILING MACHINE SET UP OPERATOR Screening mammogram, encounter for from Last 3 Months or Most Recently Relevant to Health Maintenance Results * Screening Mammogram Bilateral W Antoinette (10/16/2022 9:27 AM PROFILING MACHINE SET UP OPERATOR) Anatomical Region Laterality Modality Breast Bilateral Mammography Narrative 10/17/2022 1:16 PM PROFILING MACHINE SET UP OPERATOR Mammogram Technique: Bilateral Digital Breast Tomosynthesis, Bilateral C-view 2D Screening mammogram. Views obtained: bilateral craniocaudal and bilateral mediolateral oblique. Computer Aided Detection was performed. Mammogram Findings: The present examination has been compared to prior imaging studies performed at [facility] on 06/09/2020, and at [facility] on 2019 and 09/13/2021. There are scattered [...] compared to prior imaging studies performed at [facility] on 06/09/2020, and at [facility] on 2019 and 09/13/2021. There are scattered [...] SUPPLEMENT MEDICARE HUMANA MEDICARE SUPPLEMENT Care Teams Make Up Worker Relationship Specialty Start Date End Date Kiara Owens VENDING MACHINE OPERATOR [address] [facility] [address] [place] [address] PCP - General Nurse Practitioner 01/07/25 Nicolás Tiwari MD Surgeon Neurosurgery 07/06/20 Kirstin Sprague MD Radiation Oncologist Radiation Oncology 01/04/21 Marcy Martinez, PhD Nurse Practitioner Radiation Oncology 01/04/21
--- OUTSIDE RECORDS SUMMARY | 2025-01-19 10:09 | XMS_ITS | Clinical Summary ---
Author Organization [facility] Address [facility] [place] [address] Care Team Providers Care Stock Receiver Name Role Phone Kiara Morgan MD Primary Care Provider [phone] Allergies Active Allergy Reactions Criticality Noted Date Comments Penicillins Rash Medium 07/31/2023 Medications fluticasone propionate (FLONASE) 50 MCG/ACT nasal spray 11/07/19 23 Active rizatriptan (MAXALT) 10 MG tablet TAKE 1 TABLET BY MOUTH EVERY 2 HOURS NEEDED SOON HEADACHE IS COMING. DO NOT TAKE MORE THAN 2 TABS IN 24 HOURS. 07/27/20 23 Active topiramate (TOPAMAX) 50 MG Tab Take 1 tablet (50 mg total) by mouth 2 (two) times daily. 05/13/20 23 Active hydrOXYzine (ATARAX) 25 MG tabletIndicati ons:Insect bite of middle front wall of thorax, initial encounter Take 1 tablet (25 mg total) by mouth 3 (three) times daily as needed for Itching. 30 tablet 06/09/20 24 Active Additional Information Patient not taking.Reported on 11/11/2024 levothyroxine (SYNTHROID) 25 MCG tabletIndicati ons:Thyroid goiter Take 1 tablet by mouth once daily 90 tablet 3 06/20/20 24 Active hydrOXYzine (ATARAX) 25 MG tabletIndicati ons:Psychophys iological insomnia TAKE 1 TABLET BY MOUTH THREE TIMES DAILY NEEDED FOR ANXIETY OR SLEEP 90 tablet 01/07/20 25 Active hydrOXYzine (ATARAX) 25 MG tabletIndicati ons:Psychophys iological insomnia Take 1 tablet (25 mg total) by mouth 3 (three) times daily as needed for Anxiety (or sleep). 90 tablet 1 11/11/19 25 025 Discontinued Active Problems Problem Noted Date Diagnosed Date Raynaud's phenomenon 11/11/2024 Grief reaction 11/11/2024 Mitral valve prolapse 07/31/2023 Thyroid goiter 07/31/2023 Osteopenia 12/01/2019 Insomnia 01/29/2019 Malignant neoplasm of skin 01/29/2019 Palpitations 01/29/2019 Sensorineural hearing loss, asymmetrical 019 Chronic migraine without aur a without status migrainosus, not intractable 05/01/2017 Fibromyalgia 05/01/2017 Schwannoma of cranial nerve ([facility]) Overview (07/31/2023): Incomplete resection due to facial nerve involvement Going to due XRT Resolved Problems Problem Noted Date Diagnosed Date Resolved Date Chronic pain of right ankle 11/11/2024 11/11/2024 Hearing loss 07/31/2023 07/31/2023 Right acoustic neuroma ([facility]) 07/31/2023 07/31/2023 Encounters Date Type Department Care Team Description 11/11/2024 9:40 AM DRY FOLDER CLOTH Office Visit [facility] Family Medicine - [address], [address] [place] [address] Kiara Morgan MD Follow Up (8 week f/u. [facility] lab. ) 11/11/2024 Travel 11/05/2024 8:00 AM DRY FOLDER CLOTH Office Visit [facility] Physical Therapy [address] [facility] [address] [place] [address] Kiara Morgan MD Tolle, Lisa C, PT Ankle Sprain 11/05/2024 Travel 10/22/2024 8:45 AM DRY FOLDER CLOTH Office Visit [facility] Physical Therapy [address] [place] [address] Kiara Morgan MD Tolle, Lisa C, PT Ankle/foot Pain 10/22/2024 Travel from Last 3 Months Immunizations Immunization Administration Dates Next Due Arexvy Respiratory Syncytial Virus (RSV, adjuvanted) 0.5 mL, PF 07/20/2023 Fluzone High Dose - >Age 65 (Prefilled Syringe) 07/04/2021 Influenza (FluMist) 07/01/2013 Influenza (Generic) 07/15/2021, 9,07/03/2016,2014,01/13/2015 Influenza Adult (Generic) 07/01/2024,11/2022,07/12/2022,2019 MODERNA COVID-19 BIVALENT (1 2+), MRNA, LNP-S, PF 08/11/2022 MODERNA COVID-19 (12+) MRNA, LNP-S, PF, 100 MCG/ 0.5 ML DOSE 08/10/2021,12/21/2020,11/11/2020 MODERNA COVID-19 (ACCOUNT GROUP SUPERVISOR BENJAMÍN JUDIE), MRNA, LNP-S, PF, 50 MCG/ 0.25 ML DOSE 02/02/2022 PFIZER COVID-19 (12+) MRNA, LNP-S, PF, TY-SUCROSE, 30 MCG/0.3 ML (COMIRNATY) 07/01/2024 Pneumococcal (Pneumovax 23) 08/15/2018 Pneumococcal (Prevnar 13) 08/15/2017 Shingrix 10/20/2019 Tdap (Generic) 04/01/2013,01/09/2012 Family History Medical History Relation Comments Cancer Brother 1 Prostate cancer Hypertension Brother 1 Cancer Brother 2 Heart Disease Brother 2 Heart valve repl acement Cancer Father Prostate cancer Hypertension Father Stroke Father Defects Maternal Grandfather Arthritis Maternal Grandmother Arthritis Mother Cancer Mother Bladder cancer Vision loss Mother Fuchs disease Drug Abuse Paternal Grandfather Depression Paternal Grandmother Diabetes Paternal Grandmother Drug Abuse Paternal Grandmother Relation Status Comments Brother 1 Alive Brother 2 Father Maternal Grandfather Maternal Grandmother Mother Paternal Grandfather Paternal Grandmother Social History Tobacco Use Types Packs/Day Years Used Date Smoking Tobacco: Never Passive Smoke Exposure: Past Smokeless Tobacco: Never Tobacco Cessation:Counseling Given: No Alcohol Use Standard Drinks/Week Comments Never 0 (1 standard drink = 0.6 oz pur e alcohol) PHQ-2 Answer Date Recorded Patient Health Questionnaire-2 Score 1 11/11/2024 Comments No Sex and Gender Information Value Date Recorded Sex Assigned at Female 10/17/2024 8:21 AM DRY FOLDER CLOTH Legal Sex Female 6:21 PM CDT Gender Identity Not on file Sexual Orientation Not on file Last Filed Vital Signs Vital Sign Reading Time Taken Comments Blood Pressure 128/84 11/11/2024 9:38 AM DRY FOLDER CLOTH Pulse 85 11/11/2024 9:38 AM DRY FOLDER CLOTH Temperature 36.7 C (98 F) 11/11/2024 9:38 AM DRY FOLDER CLOTH Respiratory Rate 16 11/11/2024 9:38 AM DRY FOLDER CLOTH Oxygen Saturation 98% 11/11/2024 9:38 AM DRY FOLDER CLOTH Inhaled Oxygen Concentration - - Weight 65.9 kg (145 lb 3.2 oz) 11/11/2024 9:38 A M DRY FOLDER CLOTH Height 167.6 cm (5' 6 ) 11/11/2024 9:38 AM DRY FOLDER CLOTH Body Mass Index 23.44 11/11/2024 9:38 AM DRY FOLDER CLOTH Plan of Treatment Health Maintenance Due Date Last Done Comments Colorectal Cancer Screening Colonoscopy (10 Years) 1950 Hepatitis C 1970 Annual Medicare Wellness Visit 2017 Zoster Vaccines (2 of 2) 12/15/2019 10/20/2019 DTaP, Tdap and Td Vaccines (3 - Td or Tdap) 04/01/2023 04/01/2013, 01/09/2012 Mammogram Screening 10/16/2024 10/16/2022, 10/16/2022, 09/13/2021, Additional history exists COVID-19 Vaccine ( season) 2024 07/01/2024, 07/02/2023, 08/11/2022, Additional history exists Pneumococcal Vaccine: 50+ Years Completed 08/15/2018, 08/15/2017 Dexa Scan (General) Completed 11/11/2019 RSV Immunization or 60+ Years Completed 07/20/2023 PHQ-2 (Physician [place]) Completed 11/11/2024 Meningococcal B Vaccine Aged Out No l onger eligible based on patient's age to complete this topic Meningococcal Vaccine Aged Out No rm leona eligible based on patient's age to complete this topic RSV Immunizations Under 20 Months Aged Out No longer eligible based on patient's age to complete this topic Procedures Procedure Name Priority Date/Time Associated Diagnosis Comments MAMMOGRAM GENERIC (SCAN ORDER) 10/16/2022 BONE DENSITY GENERIC (SCAN ORDER) 11/11/2019 from Last 3 Months or Most Recently Relevant to Health Maintenance Results * MAMMOGRAM GENERIC (10/16/2022) Anatomical Region Laterality Modality Other 10/16/2022 [facility] Scanned SCANNING Final Resu lt * BONE DENSITY GENERIC (11/11/2019) Anatomical Region Laterality Modality Other 11/11/2019 [facility] Scanned SCANNING Final Resu lt from Last 3 Months or Most Recently Relevant to Health Maintenance Insurance MEDICARE [facility] COMMERCIAL PAYER Care Teams Stock Receiver Relationship Specialty Start Date End Date Kiara Morgan MD [address] [phone] PCP - General FAMILY PRACTICE 07/31/23
--- OUTSIDE RECORDS SUMMARY | 2025-01-19 10:09 | XMS_ITS | Encounter Summary ---
Author Organization [facility] Address [address] [place] [address] Care Team Providers Care On Air Talent Name Role Phone Kiara Morgan MD Primary Care Provider [phone] Encounter Details Date Type Department Care Team (Late st Contact Info) Description 08/04/2024 ENT Surgicalt Message Enc [facility] Medical [facility] Family Medicine - [place] [address] [facility] [address], [address] [place] [id number] Kiara Morgan MD [address] [facility] [address] [place] [address] PT referral Social History Tobacco Use Types Packs/Day Years Used Date Smoking Tobacco: Never Passive Smoke Exposure: Past Smokeless Tobacco: Never Alcohol Use Standard Drinks/Week Comments Never 0 (1 standard drink = 0.6 oz pur e alcohol) PHQ-2 Answer Date Recorded Patient Health Questionnaire-2 Score 0 01/30/2024 Comments No Sex and Gender Information Value Date Recorded Sex Assigned at Female 10/17/2024 8:21 AM YARN MAN Legal Sex Female 6:21 PM CDT Gender Identity Not on file Sexual Orientation Not on file documented as of this encounter Plan of Treatment Not on file documented as of this encounter Visit Diagnoses Not on filedocumented in this encounter Additional Health Concerns Assessment Noted Time PHQ-9 Depression Total Score: 2 01/30/20 24 10:18 AM CDT documented as of this encounter Care Teams On Air Talent Relationship Specialty Start Date End Date Kiara Morgan MD [address] [address] PCP - General FAMILY PRACTICE 07/31/23 documented as of this encounter
--- OUTSIDE RECORDS SUMMARY | 2025-01-19 10:10 | XMS_ITS | Data Portability ---
Author Organization [facility] [place] Address [address] [place] [address] [place] [address] Assessment Encounter Date Assessment Date Assessment LastModified by Organization Details LastModified Time 05/28/2023 05/28/2023 Annual gynecological exam performed. Patient will come back in a year unless there are new symptoms. [email or web address] Not available 05/28/2023 14:37:48 08/20/2024 08/20/2024 Annual gynecological exam performed. Patient will come back in a year unless there are new symptoms. Not available 08/20/2024 09:29:36 Plan of Treatment Reminders Order Date Submit Date Provider Last Modified By Organization Details Last Modified Time Details Appointments None recorded. Lab None recorded. Referral None recorded. Procedures None recorded. Surgeries None recorded. Imaging DEXA, axial skeleton + vertebral fracture assessment 2023 024 [facility], [address], [place], [address], 4 04:03:52 MAMMO, diagnostic, digital, bilateral 2022 023 [facility] [place], [address], [address], [place], [address], 4 16:07:44 US, breast, unilateral 2022 023 [facility] [place], [address], [address], [place], [address], 4 16:07:44 DEXA, axial skeleton + vertebral fracture assessment 2022 023 [facility] [place], [address], [place], [address], 16:07:44 Medication Orders None recorded. Patient TargetsNo targets recorded. Patient InstructionsNo instructions recorded. Reason for Referral None Reported. Results Created Date Observation Date Name Description Value Unit Range Abnormal Flag Note LastModifiedBy Organization Detail LastModifiedTime 06/27/2006/25/2023 MAMMO , diagn ostic , digit al, bilat eral No observ ation record ed. [facility] [address], [place], [address], 07/05/2023 09:37:54 07/20/2006/25/2023 MAMMO , diagn ostic , digit al, unila teral No observ ation record ed. [facility] [address], [place], [address], 07/23/2023 17:21:28 07/20/2006/25/2023 MAMMO , scree moon, bilat eral No observ ation record ed. [facility] [address], [place], [address], 07/21/2023 11:50:53 07/20/2006/25/2023 MAMMO , diagn ostic , digit al, unila teral No observ ation record ed. [facility] [address], [place], [address], 07/23/2023 17:21:50 08/08/20 24 08/08/2024 imagi ng/di agnos tic resul t No observ ation record ed. [facility] [address], [place], [address], 09/01/2024 04:03:33 Result Notes None recorded. Procedures Surgical History Date Name Laterality Status Provider Name and Address Organization Details Recorded Time 024 Date of Last Mammogram completed Paula Molina [facility] 08/20/2024 09:33:26 022 completed [facility] 05/28/2023 14:38:20 015 Date of Last Pap Smear completed [facility] 05/28/2023 14:38:20 013 Most Recent Bone Density completed [facility] 05/28/2023 14:38:20 Dilation and Curettage completed [facility] 05/28/2023 14:38:31 Thyroid Surgery completed [facility] 05/28/2023 14:38:31 tonsilectomy/adeno ids completed [facility] 05/28/2023 14:38:31 Caesarean Section completed [facility] 05/28/2023 14:38:31 Colonoscopy completed [facility] 05/28/2023 14:38:31 cardiac catheterization completed CLAUS Silva [address], [place], [address], [facility] 05/28/2023 15:48:55 Imaging Results Imaging Date Name Status LastModified by Organiz ation Details LastModified Time 06/25/2023 MAMMO, diagnostic, digital, bilateral completed [facility] [address] [address], [place], [address], 07/05/2023 09:37:54 06/25/2023 MAMMO, diagnostic, digital, unilateral completed [address] [facility] [address], [place], [address], 07/23/2023 17:21:28 06/25/2023 MAMMO, screening, bilateral completed [facility] [address], [place], [address], 07/21/2023 11:50:53 06/25/2023 MAMMO, diagnostic, digital, unilateral completed [address] [facility] [address], [place], [address], 07/23/2023 17:21:50 08/08/2024 imaging/diagnos tic result active [facility] [address] [facility] [address], [place], [address], 09/01/2024 04:03:33 Procedure Notes None recorded. Medical Equipment None Reported. Allergies Allergen ID Allergen Name Allergen Category Reaction Reaction Severity Criticality Documentation Date Start Date Code Code System Note Provider Name and Address Organization Details Recorded Time 29567 Penicilli n Not available Not available Not available Not available 05/28/2023 72874 RxNorm Elisa mccracken [place] - [facility] 3 14:38:13 Medications Name Sig Start Date Stop Date Status Note LastModified by Organization Details LastModified Time doxycycline hyclate 100 mg capsule TAKE 1 CAPSULE BY MOUTH TWICE DAILY FOR 7 DAYS 08/20 completed Not Available Not Available Not Available clindamycin HCl 300 mg capsule TAKE 3 CAPSULES BY MOUTH ONE HOUR PRIOR TO APPOINTME NT 08/20 completed Not Available Not Available Not Available meloxicam 15 mg tablet TAKE 1 TABLET BY MOUTH ONCE DAILY 08/20 completed Not Available Not Available Not Available rizatriptan 10 mg tablet TAKE 1 TABLET BY MOUTH NEEDED FOR MIGRAINE FOR UP TO 1 DOSE, MAY REPEAT IN 2 HOURS IF UNRESOLVE D. DO NOT EXCEED 30 MG IN 24 HOURS active Not Available Not Available No t Available topiramate 25 mg tablet TAKE 1 TABLET BY MOUTH TWICE DAILY active Not Available Not Available No t Available aspirin 81 mg tablet,randal yed release Take 1 tablet every day by oral route. active Not Available Not Available No t Available levothyroxi ne 25 mcg tablet TAKE 1 TABLET BY MOUTH ONCE DAILY active Not Available Not Available No t Available propranolol 40 mg tablet TAKE 1 TABLET BY MOUTH TWICE DAILY 08/20 completed Not Available Not Available Not Available famotidine 20 mg tablet TAKE 1 TABLET BY MOUTH TWICE DAILY NEEDED 08/20 completed Not Available Not Available Not Available amitriptyli ne 25 mg tablet TAKE 2 TABLETS BY MOUTH NIGHTLY, TAKE ONE TABLET NIGHTLY JUST FOR THE FIRST 7 DAYS 05/28 completed Not Available Not Available Not Available hydroxyzine HCl 25 mg tablet TAKE 1 TABLET BY MOUTH THREE TIMES DAILY NEEDED FOR ITCHING 08/20 completed Not Available Not Available Not Available estradiol 0.01% (0.1 mg/gram) vaginal cream Insert by vaginal route. 05/28 completed Not Available Not Available Not Available propranolol 20 mg tablet TAKE 1 TABLET BY MOUTH TWICE DAILY 08/20 completed Not Available Not Available Not Available hydrocortis one 2.5 % topical ointment APPLY A THIN FILM OF OINTMENT TO THE AFFECTED SKIN ON LIPS AND RUB IN GENTLY AND COMPLETEL Y TWICE DAILY NEEDED 08/20 completed Not Available Not Available Not Available naratriptan 2.5 mg tablet TAKE 1 TABLET BY MOUTH ONCE DAILY NEEDED FOR MIGRAINE, MAY REPEAT IN 4 HOURS IF UNRESOLVE D. DO NOT EXCEED 5 MG IN 24 HOURS. 08/20 completed Not Available Not Available Not Available escitalopra m 10 mg tablet TAKE 1 TABLET BY MOUTH ONCE DAILY WITH FOOD 08/20 completed Not Available Not Available Not Available topiramate 50 mg tablet TAKE 1 TABLET BY MOUTH TWICE DAILY 08/20 completed Not Available Not Available Not Available Vitals Date Recorded Body height Body mass index (BMI) Body weight Systolic blood pressure Diastolic blood pressure Provider Name and Address Organization Details Last Updated DateTime 05/28/2023 172.72 cm 23.6 kg/m2 01751.82 g 115 mm[Hg] 79 mm[Hg] Elisa Jung [facility] 3 14:38:09 Date Recorded Body height Body mass index (BMI) Body weight Systolic blood pressure Diastolic blood pressure Provider Name and Address Organization Details Last Updated DateTime 08/20/2024 172.72 cm 22.5 kg/m2 61008.67 g 127 mm[Hg] 80 mm[Hg] Paula Molina [facility] 09:30:13 Social History Question Answer Notes LastModified by Organizat ion Details LastModified Time Tobacco Smoking Status Never Smoker Elisa mccracken, [facility] 05/28/2023 14:41:22 Do You Have An Advance Directive? Yes Information n ot available 08/20/2024 What Is Your Level Of Alcohol Consumption? None Information not available 05/28/2023 How Many Years Have You Consumed Alcohol? 0 Information not available 05/28/2023 Are You Blind Or Do You Have Difficulty Seeing? No Information n ot available 05/28/2023 What Is Your Level Of Caffeine Consumption? Occasional Information not available 05/28/2023 How Much Tobacco Do You Chew? None Information not available 08/20/2024 In The 14 Days Before Symptom Onset, Have You Had Close Contact With A Laboratory-confirm ed COVID-19 While That Case Was Ill? No Information n ot available 05/28/2023 In The 14 Days Before Symptom Onset, Have You Had Close Contact With A Person Who Is Under Investigation For COVID-19 While That Person Was Ill? No Information not available 05/28/2023 Have You Been To An Area Known To Be High Risk For COVID-19? No Information not available 05/28/2023 Are You Deaf Or Do You Have Serious Difficulty Hearing? Yes Information not available 05/28/2023 What Type Of Diet Are You Following? REGULAR Information n ot available 05/28/2023 What Is The Highest Grade Or Level Of School You Have Completed Or The Highest Degree You Have Received? [id number] Information not available 05/28/2023 What Is Your Occupation? Retired Information not available 05/28/2023 Are There Any Guns Present In Your Home? Yes Information not available 05/28/2023 Do You Use Protection During Sex? Always Information not available 05/28/2023 Do You Use Your Seat Belt Or Car Seat Routinely? Yes Information not available 05/28/2023 Do You Have Smoke And Carbon Monoxide Detectors In Your Home? Yes Information not available 05/28/2023 How Much Tobacco Do You Smoke? No Information not available 05/28/2023 Do You Feel Stressed (tense, Restless, Nervous, Or Anxious, Or Unable To Sleep At Night)? [id number] Information not available 05/28/2023 Do You Use Any Illicit Or Recreational Drugs? No Information not available 05/28/2023 Do You Use Sunscreen Routinely? Yes Information not available 05/28/2023 Have You Used IV Drugs? No Information not available 05/28/2023 Sex: Unknown Functional Status Question Answer Note LastModified by Organizat ion Details LastModified Time Do you have difficulty walking or climbing stairs? No Information not available 05/28/2023 Are you able to walk? YESWOREST Information not available 05/28/2023 Are you able to care for yourself? Yes Information not available 05/28/2023 Do you have difficulty dressing or bathing? No Information not available 05/28/2023 What is your exercise level? None Information not available 05/28/2023 Mental Status None recorded. Family History Relationship Description Onset Age of this Age Resolved Age Notes LastModified by Organization Details LastModified Time Mother Osteoporosis vschroedter Not av ailable 05/28/2023 14:38:16 Mother Neoplasm of urinary bladder Not available 2023 09:35:35 Paternal Aunt Malignant tumor of breast vschroedter Not available 05/02 14:38:16 Maternal Grandmother Osteoporosis vschroedter Not availab le 05/28/2023 14:38:16 Maternal Uncle Neoplasm of urinary bladder Not available 2023 09:35:35 Medical History Condition Response Heart Problems Y Headaches Y Thyroid Problems Y Dermatologic Disorders Y Polyps Y Depression/ depression Y Gynecological History Statement/Question Response Abnormal Pap N Date of Last Mammogram 08/08/2024 N Was last menstrual period normal Y STIs/STDs N HPV Vaccine N Duration of Flow (days) 7 Current Control Method Menopause Age at First Child 30 If Post Menopausal, Age at Menopause 52 Date of Last Colonoscopy Frequency of Cycle (Q days) 27 Most Recent Bone Density 03/02/2013 Sexually Active? N Menses Monthly N Age of first menstrual cycle 16 Date of Last Pap Smear 03/01/2015 Sexual Problems? N Desired Control Method Abstinence LMP Unknown 11/30/2021 N Obstetrics History GPAL:G 4 P 0 0 1 3 Type Value Spontaneous 1 Living 3 Total 4 Past Encounters Encounter ID Performer Location Encounter Start Date Encounter Closed Date Diagnosis/Indication Diagnosis SNOMED-CT Code Diagnosis ICD10 Code Diagnosis Note [id number] CLAUS Silva [facility] [address] [address] 05/28/2023 14:10:07 05/28/2023 16:18:27 Pain of breast 32165561 N64.4 Gynecologi c examination 37872706 Z01.419 Take Calcium with Vitamin D 12-1500mg daily. Do monthly self breast exams. It is advised to get annual flu shot in the fall and she could obtain at [facility] or [facility] clinic. If you haven't received the Tdap vaccine in the last 10 years you should obtain one as well. Have mammogram yearly, bone density every 2-3 years and colonoscop y every 5-10 years depending on findings and history. Engage in daily exercise of low impact aerobic exercise 45-60 minutes 4-5 times weekly. Avoid tobacco and illicit drugs as well as using moderation with alcohol intake less than 1-2 8 oz beverages daily. This lifestyle behavior pattern will lead to less health conditions and longer life span. If BMI greater than 25 weight watchers or dietary consult advised. Questions have been answered. Patient appears to understand instructio ns, but if you have any further questions call or respond to this email WWEpostmen opausalno hx of abnormal papspaps d/c'd unless otherwise indicated per asccp guidelines STI testing declineddi agnostic benjamin and breast u/s order given for left breast tenderness dexa order given, last 5+ years agomammogr am UTDcolonos copy UTDrecomme nded switching to crisco/seymour onut oil/or extra virgin olive oil as vulvar moisturize r given recent symptoms and cardiac hx recommend patient be evaluation in the ED. She declined transport. Offered to drive patient to the ED, she declined. Pt states she will go to [place] now for evaluation . Recommende d establishi ng care with cardiologi st for f/u as well. Time spent in visit is a total of 30 mins with at least 50% of visit consisting of counseling and review of plan of care. Screening for malignant neoplasm of breast 877275233 Z12.39 Screening for osteoporosis [id number] Z13.820 [id number] CLAUS Silva [facility] [address] [address] 08/20/2024 09:24:04 08/20/2024 10:49:51 Gynecologic examination 14614693 Z01.419 WWEpostmen opausalno pap indicatedm ammogram UTDcolonos copy UTDdexa order givenrouti ne labs UTD/PCP Do monthly self breast exams. It is advised to get annual flu shot in the fall and she could obtain at [facility] or [facility] care clinic. If you haven't received the Tdap vaccine in the last 10 years you should obtain one as well. Have mammogram yearly, bone density every 2-3 years and colonoscop y every 5-10 years depending on findings and history. Engage in regular exercies. Avoid tobacco and illicit drugs. This lifestyle behavior pattern will lead to less health conditions and longer life span. If BMI greater than 25 dietary consult advised. Questions have been answered. Screening for osteoporosis [id number] Z13.820 Health Concerns Section Related Observation LastModified by Organization Detai ls LastModified Time None Recorded Concern Status LastModified by Organization Details LastModified Time None Recorded Advance Directives Directive Y: Payers Encounter Date Sequence Insurance Name Policy Number Policy Garcia Covered Member ID Garcia Member ID Guarantor Name 05/28/2023 2 [employer] (MEDICARE SUPPLEMENT) [id number] Idalmis Moeller [id number] Idalmis Moeller 05/28/2023 1 [place] Idalmis Moeller [id number] Idalmis Moeller 08/20/[address] (MEDICARE SUPPLEMENT) [id number] Idalmis Moeller [id number] Idalmis Moeller 08/20/2024 1 [place] Idalmis Moeller [id number] Idalmis Moeller Notes Date Note Type Note Provider Name and Address Organization Details Recorded Time 3 text/html Annual Senior Animator Post-MenopausalReporte d bypatient.Menopausal Symptoms:no menopausal symptoms; normal vaginal lubrication Vaginal Bleeding:history of menopause having occurred; no history of post menopausal bleeding Urinary Symptoms:no hematuria; no incontinence; no nocturia; no urinary frequency Vulva:no genital lesion; no vulvar atrophy Vagina:normal vaginal discharge; no vaginal atrophy Breast:no breast lump; no nipple discharge;breast pain; left breast pain - burning senstation, comes and goes Sexual Complaints:no sexual complaints Psychological Symptoms:no depression; no anxiety Preventive Measures:encourage regular mammograms starting age 40; encourage self breast examination; encourage regular exercise; encourage no tobacco use; mammogram performed within the past year; history of recent colonoscopy; needs to schedule bone density [id number] for WWEpostmenopausal since age 52 - no bleeding sincenot currently SAuses estrace cream 1-2 times weekly for the past 4 years. No current itching, discharge, irritation, or dryness.left breast burning sensation - comes and goes over the last 2 weeks. None today. Mammogram last 11/2022 - normal per patienthx of mitral value prolapse. Feels like heart is skipping a beat every once and awhile.Denies any current chest pain, burning, SOB, palpitations, or blurry vision. She does not currently have a acute specialist per patient, has been years since she has seen one. CLAUS Silva [address], [place], [address], [facility] 05/28/2023 16:03:01 4 text/html Annual Senior Animator Post-MenopausalReporte d bypatient.Menopausal Symptoms:no menopausal symptoms; normal vaginal lubrication Vaginal Bleeding:history of menopause having occurred; no history of post menopausal bleeding Urinary Symptoms:no hematuria; no incontinence; no nocturia; no urinary frequency Vulva:no genital lesion; no vulvar atrophy Vagina:normal vaginal discharge; no vaginal atrophy Breast:no breast lump; no nipple discharge; no breast pain Sexual Complaints:no sexual complaints Psychological Symptoms:no depression; no anxiety Preventive Measures:encourage regular mammograms starting age 40; encourage self breast examination; encourage regular exercise; encourage no tobacco useNotes:74yo WWEno h/o abnormal papsmammogram olonoscopy UTDdexa due CLAUS Silva [address], [place], [address], [place] [facility] 08/20/2024 10:49:32 OBGyn Episode Ob Episode Information Episode Created Date Number of Fetuses Patient Bloodtype Patient rh Status Prepregnancy Weight lbs Domestic Partner Domestic Partner Phone Father Name Clip Loading Machine Adjuster Status 05/28/20 23 1 CLOSED Fetus Data First Name Last Name Admitted to NICU Weight (g) Sex Living Outcome Pediatric Complications Fetus ID Race Codes Race Delivery Type M Full Term Repeat Gaudencio Calculation Initial Gaudencio Date Initial Exam Date Initial Exam Provider Initial Ultrasound Date Last Menstrual Period Date Ultra Sound Weeks Gestation 0 Eighteen To Twenty Week Gaudencio Update Ultra Sound Date Fundal Height At Umbil Quickening Date Ultra Sound Latest Weeks Gestation Final Gaudencio Confirmed By Final Gaudencio Confirmed Date Final Gaudencio Date Ultra Sound Latest Days Gestation 0 0 Menstrual History Last Menstrual Date Menses Monthly On Bcp Conception Prior Menses Frequency Hcg Plus Date Menarche Onset Age Delivery Information Delivery Date Delivery Type Labor Anesthesia Weeks Gestation Incision Type Labor Labor Length Hrs Delivered By Post Complications Tubal Sterilization Discharge Date Comments 3 Discharge Information Feeding Method Contraceptive Method Maternal HG B and HCT Levels Ob Episode Information Episode Created Date Number of Fetuses Patient Bloodtype Patient rh Status Prepregnancy Weight lbs Domestic Partner Domestic Partner Phone Father Name Clip Loading Machine Adjuster Status 05/28/20 23 1 CLOSED Fetus Data First Name Last Name Admitted to NICU Weight (g) Sex Living Outcome Pediatric Complications Fetus ID Race Codes Race Delivery Type F Full Term Repeat Gaudencio Calculation Initial Gaudencio Date Initial Exam Date Initial Exam Provider Initial Ultrasound Date Last Menstrual Period Date Ultra Sound Weeks Gestation 0 Eighteen To Twenty Week Gaudencio Update Ultra Sound Date Fundal Height At Umbil Quickening Date Ultra Sound Latest Weeks Gestation Final Gaudencio Confirmed By Final Gaudencio Confirmed Date Final Gaudencio Date Ultra Sound Latest Days Gestation 0 0 Menstrual History Last Menstrual Date Menses Monthly On Bcp Conception Prior Menses Frequency Hcg Plus Date Menarche Onset Age Delivery Information Delivery Date Delivery Type Labor Anesthesia Weeks Gestation Incision Type Labor Labor Length Hrs Delivered By Post Complications Tubal Sterilization Discharge Date Comments 5 Discharge Information Feeding Method Contraceptive Method Maternal HG B and HCT Levels Ob Episode Information Episode Created Date Number of Fetuses Patient Bloodtype Patient rh Status Prepregnancy Weight lbs Domestic Partner Domestic Partner Phone Father Name Clip Loading Machine Adjuster Status 05/28/20 23 1 CLOSED Fetus Data First Name Last Name Admitted to NICU Weight (g) Sex Living Outcome Pediatric Complications Fetus ID Race Codes Race Delivery Type F Full Term [id number] Primary Gaudencio Calculation Initial Gaudencio Date Initial Exam Date Initial Exam Provider Initial Ultrasound Date Last Menstrual Period Date Ultra Sound Weeks Gestation 0 Eighteen To Twenty Week Gaudencio Update Ultra Sound Date Fundal Height At Umbil Quickening Date Ultra Sound Latest Weeks Gestation Final Gaudencio Confirmed By Final Gaudencio Confirmed Date Final Gaudencio Date Ultra Sound Latest Days Gestation 0 0 Menstrual History Last Menstrual Date Menses Monthly On Bcp Conception Prior Menses Frequency Hcg Plus Date Menarche Onset Age Delivery Information Delivery Date Delivery Type Labor Anesthesia Weeks Gestation Incision Type Labor Labor Length Hrs Delivered By Post Complications Tubal Sterilization Discharge Date Comments 1 Discharge Information Feeding Method Contraceptive Method Maternal HG B and HCT Levels
--- OUTSIDE RECORDS SUMMARY | 2025-01-19 10:10 | XMS_ITS | Clinical Summary ---
Author Organization [facility] Address [address] [place] [address] Care Team Providers Care Power Hammer Operator Name Role Phone Carl Dooley MD Primary Care Provider [phone] Source Comments [facility],non-owned Affiliates and Associated Physician Practices is amultiple site organization consisting of ambulatory clinics and hospital sitesin [place], [place], [place] and [place]. This disclosure is being madepursuant to the Care Everywhere program and may not contain all information available regarding this patient. Last updated 18.[facility] Social History Tobacco Use Types Packs/Day Years Used Date Smoking Tobacco: Never Assessed Comments Unknown Sex and Gender Information Value Date Recorded Sex Assigned at Not on file Legal Sex Female 4:13 AM CDT Gender Identity Not on file Sexual Orientation Not on file Plan of Treatment Health Maintenance Due Date Last Done Comments BONE DENSITY TESTING 1952 COLOGUARD (AGES 45-75) - COL ON CA SCREENING 1952 COLON MONITORING 1952 COLONOSCOPY - COLON CA SCREENING 1952 CT COLONOGRAPHY - COLON CA SCREENING 1952 Colorectal Cancer Screening 1952 FIT - COLON CA SCREENING 1952 FLEX SIG - COLON CA SCREENING 1952 LIPID TESTING 1952 MAMMOGRAM 1952 MEDICARE AWV 12 MONTHS 1952 HEPATITIS C SCREENING 05/05/1970 DTAP/TDAP/TD VACCINES (1 - Tdap) 1971 PNEUMOCOCCAL VACCINE 50+ (1 of 1 - PCV) 2002 ZOSTER VACCINE (1 of 2) 2002 COVID-19 VACCINE ( - 2023-2 5 season) 2024 DEPRESSION SCREENING 10/01/2024 INFLUENZA VACCINE (Season Ended) 2025 Respiratory Syncytial Virus (RSV) Vaccine Pt: or over 60 yrs (1 - 1-dose 75+ series) 2027 HEPATITIS B VACCINE Aged Out No longe r eligible based on patient's age to complete this topic HIB VACCINE Aged Out No longer eligi ble based on patient's age to complete this topic HPV VACCINE Aged Out No longer eligi ble based on patient's age to complete this topic MENINGOCOCCAL (Group B) VACC INE SHARED DECISION-MAKING Aged Out No longer eligibl e based on patient's age to complete this topic MENINGOCOCCAL GROUPS A/C/Y/W VACCINE Aged Out No longer eligible b ased on patient's age to complete this topic Insurance MEDICARE [facility] Care Teams Power Hammer Operator Relationship Specialty Start Date End Date Carl Dooley MD [address] [place] [address] PCP - General 04/11/19
--- OUTSIDE RECORDS SUMMARY | 2025-01-19 10:10 | XMS_ITS | Encounter Summary ---
Author Organization [facility] Address [address] [place] [address] Care Team Providers Care Holiday Detector Operator Name Role Phone Carl Dooley MD Primary Care Provider [phone] Encounter Details Date Type Department Care Team (Late st Contact [facility]) Description 03/09/2021 Lab Requisition [facility] [address] [place] [address] Epifanio Khan MD [address] [place] [address] Social History Tobacco Use Types Packs/Day Years Used Date Smoking Tobacco: Never Assessed Comments Unknown Sex and Gender Information Value Date Recorded Sex Assigned at Not on file Legal Sex Female 4:13 AM CDT Gender Identity Not on file Sexual Orientation Not on file documented as of this encounter Plan of Treatment Not on file documented as of this encounter Procedures Procedure Name Priority Date/Time Associated Diagnosis Comments DERMATOPATHOLOGY Routine 03/07/2021 3:33 AM CDT documented in this encounter Results * DERMATOPATHOLOGY (03/07/2021 3:33 AM CDT) Case Report Dermatopathology Report Case: [id number] Authorizing Provider: Epifanio Khan MD Collected: 03/07/2021 03:33 AM Ordering Location: [facility] Received: 03/09/2021 06:35 AM Pathologist: Selnea Montes MD Specimen: Skin, left sue 1 2:47 PM CDT DERMATOPATHOLOGY LABORATORY Final Diagnosis Specimen A. SKIN, left sue: ACTINIC KERATOSIS, LICHENOID (L57.0) 1 2:47 PM CDT DERMATOPATHOLOGY LABORATORY Clinical History SK vs AK vs other. Path# [id number]. 2:47 PM CDT DERMATOPATHOLOGY LABORATORY Gross Description Specimen A: Received is one formalin filled container labeled with the patient's name and designated left sue. The specimen consists of a shave biopsy measuring [id number]. Jar 0. 2:47 PM CDT DERMATOPATHOLOGY LABORATORY Microscopic Description Specimen A. SKIN, left sue: There is focal parakeratosis. The lower half of the epidermis shows disorderly maturation of keratinocytes with nuclear pleomorphism. The dermis shows a band-like, chronic inflammatory infiltrate with occasional apoptotic keratinocytes and some basal vacuolar alteration. 2:47 PM CDT DERMATOPATHOLOGY LABORATORY Disclaimer An external and internal positive and negative controls are appropriate for the histochemical, immunohistochemical and immunofluorescence stain(s) in this case (if any), except where stated explicitly. The performance characteristics of the stain(s) cited in this report were developed and its performance characteristic determined by the Dermatopathology Laboratory at [facility], directed by Dr. Simon Mata. These tests need not be, and therefore are not, approved by the [place] Food and Drug Administration. The tests are used for clinical purposes. Billing Codes Specimen Charges Stain Charges 79967 1 2:47 PM CDT DERMATOPATHOLOGY LABORATORY Embedded Images 2:47 PM CDT DERMATOPATHOLOGY LABORATORY Pathology/Cytolo gy TISSUE SPECIMEN FROM SKIN / Unknown 03/07/2021 3:33 AM CDT 03/09/2021 6:35 AM CDT us Epifanio Khan MD LAB - PATHOLOGY/CYTOLOGY ORDER ROSA Final Result DERMATOPATHOLOGY LABORATORY [facility] - Department of Dermatology [address] [place] [address], [facility] [phone] documented in this encounter Visit Diagnoses Not on filedocumented in this encounter Care Teams Holiday Detector Operator Relationship Specialty Start Date End Date Carl Dooley MD [address] [facility] [address] [place] [id number] PCP - General 04/11/19 documented as of this encounter
--- OUTSIDE RECORDS SUMMARY | 2025-01-19 10:10 | XMS_ITS | Data Portability ---
Author Organization [place] [facility], Main Office Address [address] [place] [address] Care Team Providers Care Roadmaster Name Role Phone HERRERA LENNON Primary Care Provider HERRERA LENNON Referring Provider Assessment No assessment recorded. Plan of Treatment Reminders Order Date Submit Date Provider Last Modified By Organization Details Last Modified Time Details Appointments None recorded. Lab TSH, serum or plasma 2022 023 [facility] (Lab), [address] [place], [address], 3 20:58:04 T4, free, serum 2022 023 [facility] (Lab), [address] [place], [address], 3 20:57:53 Referral None recorded. Procedures None recorded. Surgeries None recorded. Imaging None recorded. Medication Orders famotidine 20 mg tablet 2022 023 [facility], [facility] [place], [address], 3 11:51:18 escitalopra m 10 mg tablet 2022 023 [email or web address] [facility] [address], [facility] [place], [address], 3 12:31:00 hydroxyzine HCl 25 mg tablet 2022 023 [facility] [address], [address] [place] [address], [place], [address], 11:51:20 Patient TargetsNo targets recorded. Patient InstructionsNo instructions recorded. Reason for Referral None Reported. Results Created Date Observation Date Name Description Value Unit Range Abnormal Flag Note LastModifiedBy Organization Detail LastModifiedTime 01/06/20 23 01/06/2023 TSH TSH 4.18 mIU/L 0.40-4 .50 normal Not Available [facility] [address] [place], [address], 01/06/2023 05:17:00 05/14/20 23 05/14/2023 T4 FREE free T4 1.44 NG/dL 0.78-2 .19 Not Available [facility] (Lab) [address] [place], [address], 05/14/2023 20:57:53 05/14/20 23 05/14/2023 TSH thyroid-stim ulating hormone 3.200 uIU/m L 0.465- 4.680 Not Available [facility] (Lab) [address] [place], [address], 05/14/2023 20:58:04 10/17/19 23 10/16/2022 MAMMO , scree moon, digit al, bilat eral No observ ation record ed. MIGRATION. [facility] [address], [address], 11/29/2022 01:25:28 10/19/19 23 10/19/2022 exerc ise stres s echoc ardio gram No observ ation record ed. MIGRATION. [address], [place], [address], 11/29/2022 01:25:28 10/26/19 23 10/26/2022 fine needl e aspir ation , ultra sound guide d, thyro id (PROC ) No observ ation record ed. MIGRATION. [address], [place], [address], 11/29/2022 01:25:28 Result Notes None recorded. Problems Name Problem SNOMED Code Status Onset Date Resolution Date Notes Provider Name and Address Organization Details Recorded Time Blurring of visual image 734846432 Active 2018 Not Available [employer] 3 01:17:33 Trigger finger of right hand 721091145186 29771 Active 2021 Not Available [employer] 3 01:17:33 Acoustic neuroma 036015172 Active 2021 Not Available [employer] 3 01:17:33 Insomnia 847233976 Active 2018 Not Available [employer] 3 01:17:33 Headache 09502585 Active 2018 Not Available [employer] 3 01:17:33 Osteopenia 893000045 Active 2019 Not Available [facility] 3 01:17:33 Pain in right hand 040423403875 109 Active 2021 Not Available [employer] 3 01:17:33 Malignant neoplasm of skin 517001350 Active 2018 ?basal sees derm yearly (Dr. Khan) [facility] Available [facility] 3 01:17:33 Migraine 98381150 Active 2018 Not Available [employer] 3 01:17:34 Nausea 966396378 Active 2018 Not Available [facility] 3 01:17:34 Palpitatio ns 42700579 Active 2018 Not Available [employer] 3 01:17:34 Raynaud's disease 685062655 Active 2022 Herrera Lennon MD [address], [place], [address] , [facility] [employer] 3 11:18:39 Hypothyroi dism 33942759 Active 2022 Herrera Lennon MD [address], [place], [address] , [facility] [employer] 3 11:20:01 Acute situationa l disturbray e 416240102 Active 2022 Herrera Lennon MD [address] [address], [place], [address] , [facility] [employer] [facility] 3 11:44:33 Bradycardi a 73363819 Active 2022 Herrera Lennon MD [address] [address], [place], [address] , [facility] [employer] [facility] [employer] [facility] 3 09:37:44 Problem Notes None recorded. Procedures Surgical History Date Name Laterality Status Provider Name and Address Organization Details Recorded Time 1 colonoscopy completed Not Available [facility] 11/30/19 01:12:02 Imaging Results Imaging Date Name Status LastModified by Organization Details LastModified Time 10/19/2022 exercise stress echocardiogram completed [id number], [place], [address], 11/29/2022 01:25:28 10/16/2022 MAMMO, screening, digital, bilateral completed [id number] [facility] [address] [place] [address] [address], [place], [address], 11/29/2022 01:25:28 10/26/2022 fine needle aspiration, ultrasound guided, thyroid (PROC) completed [id number], [place], [address], 11/29/2022 01:25:28 Procedure Notes None recorded. Medical Equipment None Reported. Allergies Allergen ID Allergen Name Allergen Category Reaction Reaction Severity Criticality Documentation Date Start Date Code Code System Note Provider Name and Address Organization Details Recorded Time 2290 Product containin g penicilli n (product) medicatio n rash moderate Not available 11/29/2022 95092 8001 SNOMED Not Available [facility] 3 01:24:56 Medications Name Sig Start Date Stop Date Status Note LastModified by Organization Details LastModified Time cyclobenzap rine 10 mg tablet Take 1 tablet 3 times a day by oral route as needed. active Not Available Not Available No t Available clindamycin HCl 300 mg capsule TAKE 3 CAPSULES BY MOUTH ONE HOUR BEFORE APPOINTME NT 09/12 completed Not Available Not Available Not Available azithromyci n 250 mg tablet TAKE 2 TABLETS (500 MG) BY ORAL ROUTE ONCE DAILY FOR 1 DAY THEN 1 TABLET (250 MG) BY ORAL ROUTE ONCE DAILY FOR 4 DAYS active Not Available Not Available No t Available tizanidine 4 mg tablet 01/29 completed Not Available Not Available Not Available benzonatate 200 mg capsule Take 1 capsule 3 times a day by oral route as needed for 7 days. active Not Available Not Available No t Available sumatriptan 100 mg tablet TAKE 1/2 TO 1 (ONE-HALF TO ONE) TABLET BY MOUTH ONCE DAILY NEEDED FOR MIGRAINE HEADACHE 01/31 completed Not Available Not Available Not Available flurbiprofe n 0.03 % eye drops INSTILL 1 DROP INTO SURGICAL EYE THREE TIMES DAILY STARTING AFTER SURGERY active Not Available Not Available No t Available prednisone 20 mg tablet Take 2 tablets every day by oral route for 5 days with food 03/01 completed Not Available Not Available Not Available rizatriptan 10 mg tablet TAKE 1 TABLET BY MOUTH EVERY 2 HOURS NEEDED SOON HEADACHE IS COMING. DO NOT TAKE MORE THAN 2 TABS IN 24 HOURS. active Not Available Not Available No t Available topiramate 25 mg tablet 12/15 completed Not Available Not Available Not Available aspirin 81 mg tablet,randal yed release Take 1 tablet every day by oral route. 05/10 completed Not Available Not Available Not Available levothyroxi ne 25 mcg tablet Take 1 tablet by mouth once daily active Not Available Not Available No t Available propranolol 40 mg tablet TAKE 1 TABLET BY MOUTH TWICE DAILY active 1/2 tab po bid MK Not Available Not Available Not Available famotidine 20 mg tablet TAKE 1 TABLET BY MOUTH TWICE DAILY NEEDED active Not Available Not Available No t Available amitriptyli ne 25 mg tablet TAKE 2 TABLETS BY MOUTH NIGHTLY, TAKE ONE TABLET NIGHTLY JUST FOR THE FIRST 7 DAYS 09/12 completed Not Available Not Available Not Available prednisolon e acetate 1 % eye drops,suspe nsion INSTILL 1 DROP INTO SURGICAL EYE THREE TIMES DAILY TO BEGIN AFTER SURGERY 01/31 completed Not Available Not Available Not Available trazodone 100 mg tablet TAKE 1 TABLET BY MOUTH EVERY DAY AT BEDTIME NEEDED FOR INSOMNIA 01/31 completed Not Available Not Available Not Available amitriptyli ne 10 mg tablet 01/30 completed Not Available Not Available Not Available doxycycline monohydrate 100 mg capsule Take 1 capsule twice a day by oral route for 10 days. active Not Available Not Available No t Available pantoprazol e 40 mg tablet,randal yed release TAKE 1 TABLET BY MOUTH ONCE DAILY active Not Available Not Available No t Available neomycin-po lymyxin-dex ameth 3.5 mg/mL-10,00 0 unit/mL-0.1 % eye drops INSTILL 1 DROP INTO AFFECTED EYE(S) BY OPHTHALMI C ROUTE EVERY 4x per day x 7 days active Not Available Not Available No t Available triamcinolo ne acetonide 0.1 % topical ointment APPLY A THIN LAYER TO THE AFFECTED AREA(S) BY TOPICAL ROUTE 2 TIMES PER DAY prn 11/06 completed Not Available Not Available Not Available polymyxin B sulfate 10,000 unit-trimet hoprim 1 mg/mL eye drops INSTILL 1 DROP INTO SURGICAL EYE 4 TIMES DAILY START 1 DAY PRIOR TO SURGERY AND CONTINUE FOR 8 DAYS 12/15 completed Not Available Not Available Not Available diclofenac sodium 75 mg tablet,randal yed release Take 1 tablet twice a day by oral route as needed. 11/06 completed Not Available Not Available Not Available hydroxyzine HCl 25 mg tablet TAKE 1 TO 2 TABLETS BY MOUTH EVERY DAY AT BEDTIME NEEDED FOR INSOMNIA active Not Available Not Available No t Available magnesium 250 mg tablet 1 po qhs 09/12 completed Not Available Not Available Not Available albuterol sulfate HFA 90 mcg/actuati on aerosol inhaler Inhale 2 puffs every 4 hours by inhalatio n route. active Not Available Not Available No t Available ipratropium bromide 42 mcg (0.06 %) nasal spray Hardy 2 sprays 3 times a day by intranasa l route as needed. active Not Available Not Available No t Available fluticasone propionate 50 mcg/actuati on nasal spray,suspe nsion Hardy 1 spray every day by intranasa l route. active Not Available Not Available No t Available escitalopra m 10 mg tablet TAKE 1 TABLET BY MOUTH ONCE DAILY WITH FOOD 05/14 completed Not Available Not Available Not Available ketorolac 0.4 % eye drops 01/31 completed Not Available Not Available Not Available topiramate 50 mg tablet TAKE 1 TABLET BY MOUTH TWICE DAILY active Not Available Not Available No t Available estradiol 2021 active Not Available Not Available Not Avai lable azithromyci n 11/15 completed Not Available Not Available Not Available Excedrin Migraine 01/31 completed Not Available Not Available Not Available Vitamin D3 09/12 completed Not Available Not Available Not Available Fioricet 05/10 completed Not Available Not Available Not Available Suprep Bowel Prep Kit 17.5 gram-3.13 gram-1.6 gram oral solution active Not Available Not Available Not Available Yuvafem 10 mcg vaginal tablet INSERT 1 TABLET VAGINALLY TWICE A WEEK 09/12 completed Not Available Not Available Not Available Shingrix (PF) 50 mcg/0.5 mL intramuscul ar suspension, kit 01/31 completed Not Available Not Available Not Available [facility] ODT 75 mg disintegrat ing tablet Take by oral route. active Not Available Not Available No t Available Fluad Quad [id number](6 5yr up)(PF) 60 mcg (15 mcg x 4)/0.5mL IM syringe PHARMACIS T ADMINISTE RED IMMUNIZAT ION ADMINISTE RED AT TIME OF DISPENSIN G active Not Available Not Available No t Available Vitals Date Recorded Body mass index (BMI) Body height Body temperature Body weight Systolic blood pressure Diastolic blood pressure Provider Name and Address Organization Details Last Updated DateTime 3 25.1 kg/m2 170.18 cm 98 [degF] 08246.7 8 g 126 mm[Hg] 68 mm[Hg] Not Available [employer] 3 01:13:47 Date Recorded Body mass index (BMI) Body height Oxygen saturation Oxygen saturation in Arterial blood by Pulse oximetry Heart rate Body temperature Body weight Systolic blood pressure Diastolic blood pressure Provider Name and Address Organization Details Last Updated DateTime 3 24.9 kg/m2 170.18 cm 99 % 99 % 67 /min 97.2 [degF] 13477.1 9 g 134 mm[Hg] 78 mm[Hg] Not Available [employer] 3 01:13:47 Date Recorded Body height Body mass index (BMI) Body weight Body temperature Heart rate Oxygen saturation Oxygen saturation in Arterial blood by Pulse oximetry Systolic blood pressure Diastolic blood pressure Provider Name and Address Organization Details Last Updated DateTime 3 170.18 cm 24.1 kg/m2 12069.2 2 g 97.1 [degF] 70 /min 96 % 96 % 120 mm[Hg] 80 mm[Hg] Yaima Shelton MA [facility] [employer] 3 10:59:44 Date Recorded Body height Body mass index (BMI) Body weight Body temperature Heart rate Oxygen saturation Oxygen saturation in Arterial blood by Pulse oximetry Systolic blood pressure Diastolic blood pressure Provider Name and Address Organization Details Last Updated DateTime 3 170.18 cm 24.3 kg/m2 94508.8 2 g 97 [degF] 57 /min 95 % 95 % 128 mm[Hg] 76 mm[Hg] Marleni Guillen RN [facility] [employer] [facility] 3 11:29:03 Date Recorded Body height Body mass index (BMI) Body weight Body temperature Oxygen saturation Oxygen saturation in Arterial blood by Pulse oximetry Heart rate Systolic blood pressure Diastolic blood pressure Provider Name and Address Organization Details Last Updated DateTime 3 170.18 cm 24.1 kg/m2 46624.2 2 g 98 [degF] 93 % 93 % 57 /min 126 mm[Hg] 80 mm[Hg] Marleni Guillen RN [facility] [employer] 3 12:17:11 Social History Question Answer Notes LastModified by Organizat ion Details LastModified Time Tobacco Smoking Status Never Smoker Fannie [email or web address] [employer] [facility] [employer] 01/17/2023 10:53:15 Do You Have An Advance Directive? No [id number] Information not available 11/29/2022 What Is Your Level Of Alcohol Consumption? None [id number] Information not available 11/29/2022 What Is Your Level Of Caffeine Consumption? Moderate [id number] Information not available 11/29/2022 In The 14 Days Before Symptom Onset, Have You Had Close Contact With A Laboratory-confirm ed COVID-19 While That Case Was Ill? No Information n ot available 01/17/2023 In The 14 Days Before Symptom Onset, Have You Had Close Contact With A Person Who Is Under Investigation For COVID-19 While That Person Was Ill? No [email or web address] Information not available 01/17/2023 What Type Of Diet Are You Following? REGULAR [id number] Information not available 11/29/2022 Are There Any Guns Present In Your Home? No Information not available 01/17/2023 What Was The Date Of Your Most Recent Tobacco Screening? 01/31/2022 [email or web address] Information not available 01/17/2023 Do You Use Any Illicit Or Recreational Drugs? No [email or web address] Information not available 01/17/2023 Do You Use Sunscreen Routinely? Yes [email or web address] Information not available 01/17/2023 Has Tobacco Cessation Counseling Been Provided? No [email or web address] Information not available 01/17/2023 Do You Have Any Dietary Restrictions? No [email or web address] Information not available 01/17/2023 Do You Or Have You Ever Used Any Other Forms Of Tobacco Or Nicotine? No Information not available 01/17/2023 Sex: Female Functional Status Question Answer Note LastModified by Organizat ion Details LastModified Time What is your exercise level? None [id number] Information not available 11/29/2022 Mental Status None recorded. Family History Relationship Description Onset Age of this Age Resolved Age Notes LastModified by Organization Details LastModified Time Mother Family history of malignant neoplasm [email or web address] Not available 2022 10:53:15 Father Hypertensive disorder [id number] Not available 11/29/2022 01:12:04 Father Family history of stroke [email or web address] Not available 2022 10:53:15 Paternal Grandmother Diabetes mellitus [id number] Not available 11/29/2022 01:12:04 Medical History Condition Response CANCER: SPECIFY Y ARTHRITIS Y Gynecological History Statement/Question Response Abnormal Pap N Sexually Active? N Weight gain N Dislike of Light during Menstrual Headac he N Menses Monthly N STIs/STDs N Current Control Method None Breast Problems no Discharge no Obstetrics History GPAL:G 0 P 0 0 0 0 Immunizations Vaccine Type Date Status Note Provider Nam e and Address Organization Details Recorded Time COVID-19, mRNA, LNP-S, bivalent, PF, 50 mcg/0.5 mL or 25mcg/0.25 mL dose 2 completed Not Available Replaced by [facility] 11/29/2022 01:24:40 Influenza, adjuvanted, quadrivalent, PF 2 completed Not Available [facility] 11/29/2022 01:24:40 Pneumococcal conjugate PCV 13 7 completed Not Available Replaced by [facility] 11/29/2022 01:24:41 pneumococcal polysaccharide PPV23 8 completed Not Available Replaced by [facility] 11/29/2022 01:24:41 Past Encounters Encounter ID Performer Location Encounter Start Date Encounter Closed Date Diagnosis/Indication Diagnosis SNOMED-CT Code Diagnosis ICD10 Code Diagnosis Note [id number] [facility] [address] [place] [address] 12/08/2020 00:00:00 12/28/2020 17:39:37 [id number] [facility] [address] [place] [address] 02/07/2021 00:00:00 02/16/2021 10:45:26 [id number] [facility] [address] [place] [address] 12/15/2021 00:00:00 12/20/2021 08:50:05 [id number] [facility] [place] [address] [facility] [address] [place] [address] 01/31/2022 00:00:00 01/31/2022 10:28:41 [id number] [facility] [place] [address] [place] [address] 02/21/2022 00:00:00 02/21/2022 12:52:33 [id number] [facility] [place] [address] [place] [address] 05/02/2022 00:00:00 05/02/2022 09:34:17 [id number] [facility] Primary [address] [place] [address] 09/12/2022 00:00:00 09/29/2022 08:25:35 [id number] [facility] Michelle [address] [facility] [address] [place] [address] 10/09/2022 00:00:00 10/09/2022 10:48:55 [id number] [facility] Michelle [address] [facility] [address] [place] [address] 11/07/2022 00:00:00 11/07/2022 10:46:11 [id number] [facility] Michelle [address] [facility] [address] [place] [address] 11/15/2022 00:00:00 11/26/2022 18:45:40 [id number] Herrera Lennon MD [facility] Primary Care Michelle lisa [address] [place] [address] [address] [place] [address] 01/17/2023 10:51:54 01/17/2023 11:38:49 Raynaud's disease 628000572 I73.00 has h/o mixed connective tissue diseasef/u with further eval if it happens again Hypothyroidism 09798236 E03.9 stablecont inue levothyrox ine 25 mcg daily [id number] Herrera Lennon MD [facility] Primary Care Michelle lisa [address] [place] [address] [address] [place] [address] 04/12/2023 11:24:33 04/12/2023 11:57:46 Acute situational disturbance 477438319 F43.20 Begin escitalopr am 10 mg po qday with foodhydrox yzine prn insomnia, will cause drowsiness f/u in 4 weeks or sooner if needed Nausea 852434750 R11.0 [id number] Herrera Lennon MD [facility] Primary Care Michelle lle [address] [facility] [address] [place] [address] 05/14/2023 12:13:01 05/14/2023 15:27:35 Hypothyroidism 11319895 E03.9 stablecont inue levothyrox ine 25 mcg dailycheck tsh and adjust to goal of 2 or lower Bradycardia 33861998 R00 .1 likely due to propranolo ldecrease 40 mg in 1/2 bidif migraines, increase will reassessf/ u in 4 weeks Acute situ ational disturbance 757001978 F43.20 improved with better sleepok to continue hydroxyzin e prn insomnia, will cause drowsiness f/u in 4 weeks or sooner if needed Health Concerns Section Related Observation LastModified by Organization Detai ls LastModified Time None Recorded Concern Status LastModified by Organization Details LastModified Time None Recorded Advance Directives Directive N: Payers Encounter Date Sequence Insurance Name Policy Number Policy Garcia Covered Member ID Garcia Member ID Guarantor Name 01/17/2023 1 [place] Idalmis Moeller [id number] Idalmis Moeller 01/17/2023 2 [employer] (MEDICARE SUPPLEMENT) Idalmis Moeller [id number] Idalmis A Sajan 04/12/2023 1 [place] Idalmis Moeller [id number] Idalmis Moeller 04/12/2023 2 [employer] (MEDICARE SUPPLEMENT) Idalmis Moeller [id number] Idalmis Moeller 05/14/2023 1 [place] Idalmis Moeller [id number] Idalmis Pardeep Moeller 05/14/2023 2 [employer] (MEDICARE SUPPLEMENT) Idalmis Moeller [id number] Idalmis Moeller Notes Date Note Type Note Provider Name and Address Organization Details Recorded Time 01/17/2023 text/html tsh was normal, feeling well Sunday hanging up clothes and the tip of her left hand 4th finger turned white and mushy and her pinky was purple lasted for 30 minutes then her hand felt a bit tingly and then her feet felt tingly which was similar to what she gets with migraines. She notes that her hands and feet and tip of nose stays cold, she has a hard time holding cold glasses or handling ice. Herrera Lennon MD [address] [place] [address], [facility] [address], [place], [address], [facility] [employer] 01/26/2023 12:09:22 04/12/2023 text/html Her daughters we re concerned about her Her stomach gets knotted up, hair loss, not sleeping well, increased headaches when she gets upset her stomach gets knotted, +nausea, +heartburnher is dealing with brain cancerwhen her mood is less worried she takes 2 hours to fall asleep Herrera Lennon MD [address], [place], [address], [employer] [facility] [employer] [facility] 04/30/2023 09:21:01 05/14/2023 text/html Her daughters we re concerned about her Her stomach gets knotted up, hair loss, not sleeping well, increased headaches when she gets upset her stomach gets knotted, +nausea, +heartburnher is dealing with brain cancerwhen her mood is less worried she takes 2 hours to fall asleep update 05/14/23: her nausea is better with famotidine. She is taking hydroxyzine 25 mg qhs which is helping her sleep and mood. She is not taking escitalopram, doesn't think she needs it right now since mood is better overall with sleep. Recently when she was very hot she felt faint, not sure if it's because she got overheated or not. She does tend to have a lower heart rate on propranolol 40 mg bid which she takes for migraines. Herrera Lennon MD [address], [place], [address], [employer] [facility] [employer] [facility] 05/15/2023 09:39:19 OBGyn Episode No OBEpisode recorded.
== END 2025-01-19 09:17 | disposition home or self-care (01) ==
LOC: ANHIMG 09:17
PROVIDERS: Visit Provider Nurse Practitioner
DX: M85.89 Other specified disorders of bone density and structure, multiple sites (principal); Z13.820 Encounter for screening for osteoporosis
CPT/HCPCS: 77080

== ENCOUNTER 2025-08-13 10:19 | Outpatient (CLI) | payer MEDICARE, SELFPAY ==
--- NOTE | ~2025-08-13 | MM_ITS ---
EXAMINATION: MM screening [facility] BI w brad HISTORY: Screening TECHNIQUE: Craniocaudal and mediolateral oblique 3-D tomosynthesis images were obtained and synthetic 2-D images were generated. CAD analysis was submitted and interpreted. COMPARISON: Comparison to multiple prior studies sequentially, with oldest reviewed study dated 09/13/2021. BREAST PARENCHYMAL COMPOSITION: Not dense: There are scattered areas of fibroglandular density. FINDINGS: There is no evidence of suspicious mass, calcification, or architectural distortion to suggest malignancy in either breast. There has been no suspicious interval change. IMPRESSION: 1. No mammographic evidence of malignancy. 2. Recommend routine screening mammography in one year. BI-RADS Category 1: Negative Reviewed, dictated and finalized at location B. [employer]
== END 2025-08-13 10:20 | disposition home or self-care (01) ==
PROVIDERS: PCP Nurse Practitioner; Visit Provider Nurse Practitioner
DX: Z12.31 Encounter for screening mammogram for malignant neoplasm of breast (principal)
CPT/HCPCS: 77063; 77067